=== PATIENT | male | born 1945 | race Caucasian/White ===

== ENCOUNTER 2016-12-17 02:03 | Emergency (ER) | payer MEDICARE, OTHER ==
[~2016-12-17] VITALS: Ht 185.4 cm; Wt 84.0 kg
[~2016-12-17 02:03] MED LIST: ALLOPURINOL100 MG PO; ASPIRIN EC81 MG PO; AZILECT0.5 MG PO; COREG6.25 MG PO; DOXYCYCL HYC100 M4 PO; LASIX 40 MG TAB40 MG PO; LORTAB 10 PO; MIRAPEX0.5 MG PO; NEXIUM40 MG PO; POT CHLORIDE10 ME1 PO; SINEMET 25/1001 TA2 PO
[2016-12-17] MEDS ORDERED: NEXIUM20 M1 PO (02:34)
[2016-12-17] MEDS ORDERED: ASPIRIN81 MG PO (02:39)
[2016-12-17] MEDS ORDERED: CLONAZEPAM0.5 MG PO (02:42)
[2016-12-17] MEDS ORDERED: CIALIS5 MG PO (02:43)
[2016-12-17 03:03] LABS: URINE BILIRUBIN - DIPSTICK NEGATIVE (NEGATIVE); URINE BLOOD DIPSTICK NEGATIVE (NEGATIVE); URINE CLARITY CLEAR; URINE COLOR YELLOW; URINE GLUCOSE - DIPSTICK NEGATIVE (NEGATIVE); URINE KETONE NEGATIVE (NEGATIVE); URINE LEUK ESTERASE NEGATIVE (NEGATIVE); URINE NITRITE - DIPSTICK NEGATIVE (Negative); URINE PH 5.5 (4.5-8.0); URINE PROTEIN - DIPSTICK NEGATIVE (NEG-TRACE); URINE SPECIFIC GRAVITY <=1.005; URINE UROBILINOGEN - DIPSTICK 0.2 E.U./dL (0.2)
[2016-12-17 03:06] LABS: IMMATURE GRANULOCYTES 0.6 % (0.0-1.0); MEAN CELL VOLUME 94.2 fL CALC (80.0-100.0); MEAN CORPUSCULAR HGB 31.4 pG CALC (26.0-32.0); MEAN CORPUSCULAR HGB CONC 33.3 g/L CALC (32.0-36.0); NEUT# 2.3 thou/uL (1.82-7.42); RED BLOOD COUNT 4.14 mill/uL (4.70-6.10); RED CELL DISTRI WIDTH 14.1 % (11.5-15.5)
[2016-12-17] MEDS ORDERED: RYTARY PO ×2 (03:26)
[2016-12-17 03:34] LABS: ALBUMIN 3.9 g/dL (3.2-5.0); ALKALINE PHOSPHATASE 73 u/l (38-126); ANION GAP 14 (6-22 (CALC)); BILIRUBIN, TOTAL 0.5 mg/dL (0.0-1.4); BUN 16 mg/dL (8-23); BUN/CREATININE RATIO 14 (12-20 (CALC)); CALCIUM 9.9 mg/dL (8.4-10.2); CARBON DIOXIDE 27 mmol/l (22-30); CHLORIDE 101 mmol/l (95-108); CREATININE 1.2 mg/dL (0.7-1.3); GFR 60 ML/MIN (>=60 (CALC)); GFR FOR AFR.AMER. > 60 ML/MIN (>=60 (CALC)); GLUCOSE 78 mg/dL (82-115); POTASSIUM 3.7 mmol/l (3.5-5.1); SGOT/AST 43 u/l (19-48); SGPT/ALT 19 u/l (11-66); SODIUM 138 mmol/l (137-146); TOTAL PROTEIN 7.1 g/dL (6.3-8.2)
[2016-12-17 03:45] LABS: MYOGLOBIN 36 ng/mL (0 - 121)
[2016-12-17 04:20] VITALS: BP 161/83
== END 2016-12-17 04:20 | disposition home or self-care (01) ==
LOC: ED 02:03
PROVIDERS: Emergency Medicine
DX: F41.9 Anxiety disorder, unspecified (principal); G20 Parkinson's disease; R07.9 Chest pain, unspecified; R06.02 Shortness of breath; Z95.3 Presence of xenogenic heart valve

== ENCOUNTER 2018-12-11 12:11 | Observation (INO) | payer MEDICARE, OTHER ==
[~2018-12-11] VITALS: Ht 185.4 cm; Wt 83.4 kg
[~2018-12-11 12:11] MED LIST changes: +ASPIRIN81 MG PO; +CIALIS5 MG PO; +CLONAZEPAM0.5 MG PO; +NEXIUM20 M1 PO; +RYTARY PO
[2018-12-11 12:37] LABS: HEMOGLOBIN 13.8 g/dl (14.0-18.0); IMMATURE GRANULOCYTES 0.6 % (0.0-5.0); MEAN CELL VOLUME 94.2 fL CALC (80.0-100.0); MEAN CORPUSCULAR HGB 30.9 pG CALC (26.0-32.0); MEAN CORPUSCULAR HGB CONC 32.9 g/L CALC (32.0-36.0); NEUT# 3.81 thou/uL (1.82-7.42); RED BLOOD COUNT 4.46 mill/uL (4.70-6.10); RED CELL DISTRI WIDTH 14.2 % (11.5-15.5)
[2018-12-11] MEDS ORDERED: RYTARY PO (12:38)
[2018-12-11] MEDS ORDERED: ALPRAZOLAM0.25 MG PO (12:39)
[2018-12-11] MEDS ORDERED: GOCOVRI137 MG PO (12:40)
[2018-12-11] MEDS ORDERED: OMEPRAZOLE20 M2 PO (12:40)
[2018-12-11] MEDS ORDERED: TAMSULOSIN0.4 MG PO (12:41)
[2018-12-11 12:51] LABS: ALBUMIN 4.1 g/dL (3.2-5.0); ALKALINE PHOSPHATASE 82 u/l (38-126); BUN 26 mg/dL (8-23); BUN/CREATININE RATIO 24 (12-20 (CALC)); CARBON DIOXIDE 28 mmol/l (22-30); CHLORIDE 103 mmol/l (95-108); CREATININE 1.1 mg/dL (0.7-1.3); GFR > 60 ML/MIN (>=60 (CALC)); GFR FOR AFR.AMER. > 60 ML/MIN (>=60 (CALC)); LIPASE 82 u/l (23-300); SGOT/AST 24 u/l (19-48); SODIUM 138 mmol/l (137-146); TOTAL PROTEIN 6.9 g/dL (6.3-8.2)
[2018-12-11 12:54] LABS: ANION GAP 12 (6-22 (CALC)); BILIRUBIN, TOTAL 0.8 mg/dL (0.0-1.4); POTASSIUM 4.5 mmol/l (3.5-5.1)
[2018-12-11 17:25] VITALS: BP 128/74
[2018-12-11 19:15] VITALS: BP 128/73
[2018-12-11 23:30] VITALS: BP 134/70
[2018-12-12 04:00] VITALS: BP 138/76
[2018-12-12 05:04] LABS: ALBUMIN 3.6 g/dL (3.2-5.0); BILIRUBIN, TOTAL 0.7 mg/dL (0.0-1.4); CREATININE 1.4 mg/dL (0.7-1.3); HEMATOCRIT 41.2 % (39.0-50.0); HEMOGLOBIN 13.3 g/dl (14.0-18.0); IMMATURE GRANULOCYTES 0.2 % (0.0-5.0); MAGNESIUM 1.9 mg/dL (1.6-2.3); MEAN CELL VOLUME 95.8 fL CALC (80.0-100.0); MEAN CORPUSCULAR HGB 30.9 pG CALC (26.0-32.0); MEAN CORPUSCULAR HGB CONC 32.3 g/L CALC (32.0-36.0); NEUT# 1.85 thou/uL (1.82-7.42); POTASSIUM 4.4 mmol/l (3.5-5.1); RED BLOOD COUNT 4.3 mill/uL (4.70-6.10); RED CELL DISTRI WIDTH 14.1 % (11.5-15.5); TOTAL PROTEIN 6.2 g/dL (6.3-8.2)
[2018-12-12 08:33] VITALS: BP 113/60
[2018-12-12 11:05] VITALS: BP 146/85
== END 2018-12-12 12:56 | disposition home or self-care (01) ==
LOC: ED 12:11 → ED-I 15:30 → ED 15:49 → MS2 15:50
PROVIDERS: Emergency Medicine; ADMIT Internal Medicine Nephrology; ATTEND Internal Medicine Nephrology
DX: R07.89 Other chest pain (principal); I10 Essential (primary) hypertension; G20 Parkinson's disease; M48.32 Traumatic spondylopathy, cervical region; K21.9 Gastro-esophageal reflux disease without esophagitis; N40.0 Benign prostatic hyperplasia without lower urinary tract symptoms; Z79.82 Long term (current) use of aspirin; Z95.0 Presence of cardiac pacemaker; Z95.2 Presence of prosthetic heart valve; R61 Generalized hyperhidrosis

== ENCOUNTER 2019-05-14 14:01 | Emergency (ER) | payer MEDICARE, OTHER ==
[~2019-05-14] VITALS: Ht 185.4 cm; Wt 78.0 kg
[~2019-05-14 14:01] MED LIST changes: +ALPRAZOLAM0.25 MG PO; +GOCOVRI137 MG PO; +OMEPRAZOLE20 M2 PO; +TAMSULOSIN0.4 MG PO
[2019-05-14 15:01] LABS: HEMATOCRIT 40.9 % (39.0-50.0); HEMOGLOBIN 13.3 g/dl (14.0-18.0); IMMATURE GRANULOCYTES 0.7 % (0.0-5.0); MEAN CELL VOLUME 96.2 fL CALC (80.0-100.0); MEAN CORPUSCULAR HGB 31.3 pG CALC (26.0-32.0); MEAN CORPUSCULAR HGB CONC 32.5 g/L CALC (32.0-36.0); NEUT# 1.59 thou/uL (1.82-7.42); RED BLOOD COUNT 4.25 mill/uL (4.70-6.10); RED CELL DISTRI WIDTH 14.7 % (11.5-15.5)
[2019-05-14 15:05] LABS: URINE BILIRUBIN - DIPSTICK NEGATIVE (NEGATIVE); URINE BLOOD DIPSTICK NEGATIVE (NEGATIVE); URINE COLOR YELLOW; URINE GLUCOSE - DIPSTICK NEGATIVE (NEGATIVE); URINE KETONE TRACE mg/dL (NEGATIVE); URINE LEUK ESTERASE NEGATIVE (NEGATIVE); URINE NITRITE - DIPSTICK NEGATIVE (Negative); URINE PH 5.5 (4.5-8.0); URINE PROTEIN - DIPSTICK NEGATIVE (NEG-TRACE); URINE SPECIFIC GRAVITY >=1.030; URINE UROBILINOGEN - DIPSTICK 0.2 E.U./dL (0.2)
[2019-05-14 15:21] LABS: ALBUMIN 3.4 g/dL (3.2-5.0); ALKALINE PHOSPHATASE 56 u/l (38-126); ANION GAP 9 (6-22 (CALC)); BILIRUBIN, TOTAL 0.4 mg/dL (0.0-1.4); BUN 24 mg/dL (8-23); BUN/CREATININE RATIO 25 (12-20 (CALC)); CARBON DIOXIDE 26 mmol/l (22-30); CHLORIDE 106 mmol/l (95-108); GFR > 60 ML/MIN (>=60 (CALC)); GFR FOR AFR.AMER. > 60 ML/MIN (>=60 (CALC)); LIPASE 108 u/l (23-300); SGOT/AST 19 u/l (19-48); SODIUM 137 mmol/l (137-146); TOTAL PROTEIN 6.2 g/dL (6.3-8.2)
[2019-05-14] MEDS ORDERED: ONDANSETRON4 MG PO (16:14)
[2019-05-14 16:57] VITALS: BP 111/72
== END 2019-05-14 16:59 | disposition home or self-care (01) ==
LOC: ED 14:01
PROVIDERS: Family Medicine
DX: K52.9 Noninfective gastroenteritis and colitis, unspecified (principal); G20 Parkinson's disease; Z95.0 Presence of cardiac pacemaker

== ENCOUNTER 2019-12-23 09:13 | Emergency (ER) | payer MEDICARE, OTHER ==
[~2019-12-23 09:13] MED LIST changes: +AMANTADINE100 M1 PO; +CARB/LEVO SR PO; -GOCOVRI137 MG PO; +ONDANSETRON4 MG PO
[2019-12-23] MEDS ORDERED: RYTARY PO (09:31)
[2019-12-23] MEDS ORDERED: B-12500 MCG SL (09:32)
[2019-12-23] MEDS ORDERED: [UNRECOGNIZED DRUG - OTHER] TOP (09:33)
[2019-12-23 09:40] LABS: HEMATOCRIT 43.2 % (39.0-50.0); HEMOGLOBIN 14.2 g/dl (14.0-18.0); IMMATURE GRANULOCYTES 0.5 % (0.0-5.0); MEAN CELL VOLUME 92.3 fL CALC (80.0-100.0); MEAN CORPUSCULAR HGB 30.3 pG CALC (26.0-32.0); MEAN CORPUSCULAR HGB CONC 32.9 g/dL CAL (32.0-36.0); NEUT# 3.79 thou/uL (1.82-7.42); RED BLOOD COUNT 4.68 mill/uL (4.70-6.10); RED CELL DISTRI WIDTH 14.3 % (11.5-15.5)
[2019-12-23 09:54] LABS: ALBUMIN 3.9 g/dL (3.2-5.0); ALKALINE PHOSPHATASE 74 u/l (38-126); AMYLASE 40 u/l (30-110); BUN 23 mg/dL (8-23); BUN/CREATININE RATIO 25 (12-20 (CALC)); CARBON DIOXIDE 27 mmol/l (22-30); CHLORIDE 105 mmol/l (95-108); CREATININE 0.9 mg/dL (0.7-1.3); ETHYL ALCOHOL 0 mg/dl (0-30); GFR > 60 ML/MIN (>=60 (CALC)); GFR FOR AFR.AMER. > 60 ML/MIN (>=60 (CALC)); LIPASE 83 u/l (23-300); MAGNESIUM 1.8 mg/dL (1.6-2.3); SGOT/AST 27 u/l (19-48); SODIUM 135 mmol/l (137-146)
[2019-12-23 09:56] LABS: ACT PARTIAL THROMBO TIME 24.9 SECONDS (20.0-32.5); D-DIMER 0.47 mg/L (0.19-0.60)
[2019-12-23 09:58] LABS: PROTHROMBIN TIME 10.5 SECONDS (9.0-12.5)
[2019-12-23 10:17] LABS: ANION GAP 8 (6-22 (CALC)); BILIRUBIN, TOTAL 0.9 mg/dL (0.0-1.4); POTASSIUM 4.9 mmol/l (3.5-5.1)
[2019-12-23 10:23] LABS: TSH, 3RD GENERATION 2.49 uIU/mL (0.47 - 4.68)
[2019-12-23 11:11] LABS: URINE BILIRUBIN - DIPSTICK NEGATIVE (NEGATIVE); URINE BLOOD DIPSTICK NEGATIVE (NEGATIVE); URINE COLOR YELLOW; URINE GLUCOSE - DIPSTICK NEGATIVE (NEGATIVE); URINE KETONE NEGATIVE (NEGATIVE); URINE LEUK ESTERASE NEGATIVE (NEGATIVE); URINE NITRITE - DIPSTICK NEGATIVE (Negative); URINE PROTEIN - DIPSTICK NEGATIVE (NEG-TRACE); URINE UROBILINOGEN - DIPSTICK 0.2 E.U./dL (0.2)
[2019-12-23 16:56] VITALS: BP 164/82
== END 2019-12-23 16:50 | disposition short-term general hospital (02) ==
LOC: ED 09:13
DX: R55 Syncope and collapse (principal); G20 Parkinson's disease; Z96.82 Presence of neurostimulator; Z95.0 Presence of cardiac pacemaker
CPT/HCPCS: Q9967

== ENCOUNTER 2019-12-25 09:31 | Observation (INO) | payer MEDICARE, OTHER ==
[2019-12-25] VITALS (7 sets, daily range): BP systolic 147–186; BP diastolic 79–99
[~2019-12-25] VITALS: Ht 182.9 cm; Wt 86.0 kg
[~2019-12-25 09:31] MED LIST changes: +B-12500 MCG SL; +[UNRECOGNIZED DRUG - OTHER] TOP
--- NOTE | 2019-12-25 09:45 | NUR ---
PT TO ROOM VIA WHEELCHAIR. TO STRETCHER WITH A SHUFFLING GAIT.
--- NOTE | 2019-12-25 09:50 | NUR ---
PT C/O CONTINUED DIZZINESS X 3 DAYS. [facility] COMPLETED AND IS A 0 AT THIS TIME.
--- NOTE | 2019-12-25 10:00 | NUR ---
SPOKE TO PATIENT AND HE GAVE PERMISSION TO SPEAK WITH DAUGHTER ZAYDA AND GIVE INFORMATION REGARDING HIS CONDITION.
[2019-12-25 10:54] LABS: HEMATOCRIT 44.8 % (39.0-50.0); HEMOGLOBIN 14.3 g/dl (14.0-18.0); IMMATURE GRANULOCYTES 0.5 % (0.0-5.0); MEAN CELL VOLUME 94.3 fL CALC (80.0-100.0); MEAN CORPUSCULAR HGB 30.1 pG CALC (26.0-32.0); MEAN CORPUSCULAR HGB CONC 31.9 g/dL CAL (32.0-36.0); NEUT# 3.97 thou/uL (1.82-7.42); RED BLOOD COUNT 4.75 mill/uL (4.70-6.10); RED CELL DISTRI WIDTH 14.2 % (11.5-15.5)
[2019-12-25 10:55] LABS: URINE BILIRUBIN - DIPSTICK NEGATIVE (NEGATIVE); URINE BLOOD DIPSTICK NEGATIVE (NEGATIVE); URINE COLOR YELLOW; URINE GLUCOSE - DIPSTICK NEGATIVE (NEGATIVE); URINE KETONE NEGATIVE (NEGATIVE); URINE LEUK ESTERASE NEGATIVE (NEGATIVE); URINE NITRITE - DIPSTICK NEGATIVE (Negative); URINE PH 5.5 (4.5-8.0); URINE PROTEIN - DIPSTICK NEGATIVE (NEG-TRACE); URINE UROBILINOGEN - DIPSTICK 0.2 E.U./dL (0.2)
--- NOTE | 2019-12-25 11:00 | NUR ---
PT RESTING IN STRETCHER IN NAD AND DENIES ANY NEEDS AT THIS TIME. CALL VALLE WITHIN REACH. PT AND UPDATED ON PLAN OF CARE AND WAIT TIME.
[2019-12-25 11:10] LABS: ALKALINE PHOSPHATASE 74 u/l (38-126); ANION GAP 8 (6-22 (CALC)); BILIRUBIN, TOTAL 0.6 mg/dL (0.0-1.4); BUN 19 mg/dL (8-23); BUN/CREATININE RATIO 19 (12-20 (CALC)); CARBON DIOXIDE 29 mmol/l (22-30); CHLORIDE 104 mmol/l (95-108); GFR > 60 ML/MIN (>=60 (CALC)); GFR FOR AFR.AMER. > 60 ML/MIN (>=60 (CALC)); POTASSIUM 4.1 mmol/l (3.5-5.1); SGOT/AST 26 u/l (19-48); SODIUM 137 mmol/l (137-146); TOTAL PROTEIN 7.3 g/dL (6.3-8.2)
--- NOTE | 2019-12-25 11:23 | NUR ---
EDP at bedside to discuss clinical findings with pt
--- NOTE | 2019-12-25 12:00 | NUR ---
PT INFOMRED STAFF THAT MEDICATION LIST IS THE SAME AT THIS TIME AND HE TOOK ALL MEDICATIONS THIS AM.
--- NOTE | 2019-12-25 12:01 | NUR ---
CALL INTO [facility] FOR PACER INTERROGATION, PT HAD IT DONE ON WEDNESDAY AND REQUEST IT BE INTERROGATED AGAIN. AWAITING REP CALL BACK
--- NOTE | 2019-12-25 12:35 | NUR ---
PT REPORT CALLED TO PABLO DUONG.
--- NOTE | 2019-12-25 12:38 | NUR ---
ROSANNE INTERROGATED AT BEDSIDE, CALL INTO [facility]. SPOKE WITH TRUNG AT [facility] AND SHE WILL HAVE REP CALL UPSTAIRS TO ACCEPTING NURSE
--- NOTE | 2019-12-25 12:40 | NUR ---
Admission Note Report Given to: PABLO DUONG Transported by: Wheelchair X Stretcher Transported with: X Nurse Transporter X Patent IV O2 X Conical Mixer Location: ICU X MS2 PT TAKEN TO ROOM 280 IN STABLE CONDITION AND BEDSIDE REPORT TO RHODA SHAH.
--- NOTE | 2019-12-25 12:50 | NUR ---
PT ARRIVED TO UNIT VIA STRETCHER WITH ER STAFF; ALERT AND ORIENTED. STANDS AND AMBULATES WITH SHUFFLED GAIT TO BED; AMBULATES WITH WALKER AT HOME. C/O INTERMITTENT HEADACHE TO FORHEAD 5/10. RESPIRATIONS EVEN AND UNLABORED ON ROOM AIR. BP ELEVATED AT THIS TIME; PT IS CALM. ORIENTED TO ROOM AND CALL LIGHT SYSTEM. PLAN OF CARE DISCUSSED. PT ENCOURAGED TO VERBALIZE CONCERNS. STATES UNDERSTANDING. SAFETY MEASURES IN PLACE. CALL LIGHT WITHIN REACH.
--- NOTE | 2019-12-25 13:15 | NUR ---
ORTHOSTATIC BLOOD PRESSURES OBTAINED AND DOCUMENTED. SBP DECREASED GREATER THAN 20 FROM SITTING TO STANDING.
--- NOTE | 2019-12-25 14:41 | NUR ---
PT AMBULATED TO BATHROOM WITH WALKER AND STAND BY ASSIST FOR BOWEL MOVEMENT. REQUESTS STOOL SOFTER. FAMILY CALLED TO BRING PT'S PERSONAL WALKER. NOW AT BEDSIDE.
--- NOTE | 2019-12-25 15:29 | NUR ---
PT AND ARE HAVING A TELECOMMUNICATION CONFERENCE WITH NEUROLOGIST.
--- NOTE | 2019-12-25 15:45 | NUR ---
CASE MANAGEMENT AT BEDSIDE WITH PRESENT.
--- NOTE | 2019-12-25 20:30 | NUR ---
REPORT RECEIVED FROM Brigida TILLMAN RN, CARE OF PT ASSUMED @ THIS TIME.
--- NOTE | 2019-12-25 20:45 | NUR ---
PHYSICAL ASSESMENT COMPLETE. VS TAKEN BY WORKSITE WELLNESS PRACTITIONER @ 3311 ASSESSED. TELEMETRY READING PROVIDED BY ED COLLECTION DEVELOPMENT LIBRARIAN @ 1999 ASSESSED. PLAN OF CARE REVIEWED W/ PT, VERBALIZES UNDERSTANDING AND DENIES QUESTIONS @ THIS TIME. PROVIDED W/ HS SNACK AND WARM BLANKET PER HIS REQUEST. ASSISTED PT IN POSITIONING COMFORTABLY IN BED. PT DENIES FURTHER NEEDS @ THIS TIME. CALL VALLE WITHIN REACH, AGREES TO CALL PRN. BED LOCKED IN LOW POSITION W/ BEDRAILS UP X2, ITEMS WITHIN REACH.
--- NOTE | 2019-12-25 21:05 | NUR ---
PT'S REPORTS ALREADY TAKING HIS 2100 DOSE OF COREG FROM HIS OWN MEDICATIONS. PT CALLED AND PT'S VERIFIED COREG WAS ALREADY TAKEN.
--- NOTE | 2019-12-25 23:40 | NUR ---
PT REQUESTING HIS KLONOPIN, EXPLAINED TO PT KLONOPIN WAS SCHEDULED FOR DAILY @ 0900. PT CLARIFIES HE TAKES KLONOPIN @ . CLARIFIED AND CORRECTED ON OCT.
--- NOTE | 2019-12-26 00:05 | NUR ---
THEE GIVEN, SEE MAR. PHYSICAL ASSESSMENT REMAINS @ BASELINE. VS TAKEN BY FIBREGLASS GUN HAND @ 2340 ASSESSED. TELEMETRY READING PROVIDED BY ED ACID CORRECTION HAND ASSESSED. PT DENIES FURTHER NEEDS @ THIS TIME. CALL VALLE REMAINS WITHIN REACH, AGREES TO CALL PRN. ITEMS REMAIN WITHIN REACH. BED REMAINS LOCKED IN LOW POSITION W/ BEDRAILS UP X2.
--- NOTE | 2019-12-26 03:26 | NUR ---
PT APPEARS TO BE SLEEPING COMFORTABLY AND IN NO APPARENT DISTRESS. RESPIRATIONS EVEN AND UNLABORED. CALL VALLE REMAINS WITHIN REACH, ITEMS REMAIN WITHIN REACH. BED REMAINS LOCKED IN LOW POSITION W/ BEDRAILS UP X2.
[2019-12-26 04:12] VITALS: BP 129/82
--- NOTE | 2019-12-26 05:20 | NUR ---
PHYSICAL ASSESSMENT REMAINS UNCHANGED FROM BASELINE. VS TAKEN BY SENIOR PARTNER @ 0412 ASSESSED. TELEMETRY READING PROVIDED BY ED LICENSED SALES ASSISTANT @ 0400 ASSESSED. PT DENIES FURTHER NEEDS @ THIS TIME. RESTING COMFORTABLY IN BED. CALL VALLE REMAINS WITHIN REACH, AGREES TO CALL PRN. ITEMS REMAIN WITHIN REACH. BED REMAINS LOCKED IN LOW POSITION W/ BEDRAILS UP X2.
--- NOTE | 2019-12-26 05:59 | NUR ---
PT ENDORSED TO Brigida TILLMAN RN, CARE OF PT HANDED OFF @ THIS TIME.
[2019-12-26 07:46] VITALS: BP 132/79
--- NOTE | 2019-12-26 07:54 | NUR ---
SHIFT CHANGE REPORT, PT AWAKE ALERT AND ORIENTED SITTING UP IN CHAIR, NO C/O DISCOMFORT, STATES HE IS READY TO GO HOME, TELE MONITOR IN PLACE, CALL VALLE IN REACH.
--- NOTE | 2019-12-26 08:14 | NUR ---
NURSE WENT TO ADMINISTER MEDS, PT REFUSED STATING HE ALREADY TOOK HIS OWN. PT WAS INFORMED AND EDUCATED ON POLICY OF TAKING HOME MEDS IN HOSPITAL AND ADVISED TO REPORT AND DELIVER ALL HOME MEDS TO NURSING STAFF ON ADMISSION, HE STATED UNDERSTANDING.
[2019-12-26 11:41] VITALS: BP 149/83
--- NOTE | 2019-12-26 12:20 | NUR ---
Discharge instructions given. Patient verbalizes understanding of same. Discharged in good condition via Wheelchair to Home with spouse. All belongings sent with pt. PT LEFT UNIT WITH FACE MASK IN PLACE, TELE MONITOR REMOVED AND LEFT ON UNIT.
--- NOTE | 2019-12-28 11:41 | NUR ---
BLOOD CULTURE RESULTS CALLED TO . / VIALS GROWING CORYNEBACTERIUM. MD DOES NOT COSIDER THIS A (+) RESULT NO TREATMENT NEEDED.
== END 2019-12-26 12:20 | disposition home or self-care (01) ==
LOC: ED 09:31 → ED-I 11:15 → ED 11:27 → ED-I 11:28 → MS2 11:28
PROVIDERS: Family Medicine; ADMIT Internal Medicine; ATTEND Internal Medicine
DX: I95.1 Orthostatic hypotension (principal); G20 Parkinson's disease; Z95.0 Presence of cardiac pacemaker; Z95.2 Presence of prosthetic heart valve; Z20.828 Contact with and (suspected) exposure to other viral communicable diseases
CPT/HCPCS: G0378

== ENCOUNTER 2020-04-10 13:41 | Observation (INO) | payer MEDICARE, OTHER ==
[~2020-04-10] VITALS: Ht 185.4 cm; Wt 87.2 kg
--- NOTE | 2020-04-10 13:41 | NUR ---
PT TO ROOM VIA WC
[2020-04-10 14:32] LABS: HEMATOCRIT 41.9 % (39.0-50.0); HEMOGLOBIN 13.2 g/dl (14.0-18.0); IMMATURE GRANULOCYTES 0.5 % (0.0-5.0); MEAN CELL VOLUME 95.9 fL CALC (80.0-100.0); MEAN CORPUSCULAR HGB 30.2 pG CALC (26.0-32.0); MEAN CORPUSCULAR HGB CONC 31.5 g/dL CAL (32.0-36.0); NEUT# 5.53 thou/uL (1.82-7.42); RED BLOOD COUNT 4.37 mill/uL (4.70-6.10); RED CELL DISTRI WIDTH 14.6 % (11.5-15.5)
--- NOTE | 2020-04-10 14:40 | NUR ---
PT UPDATED ON PENDING ADMISSION. PT VERBALILZED UNDERSTANDING. SITTING UP IN STRETCHER AOX4. UPON REASSESSMENT HE STATES THAT HIS CHEST PRESSURE HAS RELIEVED "A BIT"
[2020-04-10 14:48] LABS: ALBUMIN 3.9 g/dL (3.2-5.0); ALKALINE PHOSPHATASE 87 u/l (38-126); ANION GAP 10 (6-22 (CALC)); BILIRUBIN, TOTAL 0.5 mg/dL (0.0-1.4); BUN 33 mg/dL (8-23); BUN/CREATININE RATIO 28 (12-20 (CALC)); CARBON DIOXIDE 28 mmol/l (22-30); CHLORIDE 103 mmol/l (95-108); CREATININE 1.2 mg/dL (0.7-1.3); GFR 59 ML/MIN (>=60 (CALC)); GFR FOR AFR.AMER. > 60 ML/MIN (>=60 (CALC)); POTASSIUM 4.5 mmol/l (3.5-5.1); SGOT/AST 35 u/l (19-48); SODIUM 136 mmol/l (137-146); TOTAL PROTEIN 6.7 g/dL (6.3-8.2)
--- NOTE | 2020-04-10 15:51 | NUR ---
GAVE REPORT TO NATANAEL
--- NOTE | 2020-04-10 16:00 | NUR ---
Admission Note Report Given to: NATANAEL Transported by: X Wheelchair Stretcher Transported with: X Nurse Transporter X Patent IV O2 X School Bus Driver/Mechanic Location: ICU X MS2 PT TRANSPORTED TO [facility] SURG STABLE AND IN NO DISTRESS. CARE ASSUMED NATANAEL
[2020-04-10 16:15] VITALS: BP 153/85
--- NOTE | 2020-04-10 16:15 | NUR ---
PT ARRIVED TO MED/SURG ROOM 267 IN STABLE CONDITION VIA WHEELCHAIR ACCOMPANIED BY PABLO LARKIN;PT AMBULATED WITH A WEAK GAIT AND 1 PERSON ASSIST TO STANDING SCALE AND BEDSIDE;WT AND VS OBTAINED;PT A&O X3,ORIENTED TO ROOM AND CALL LIGHT SYSTEM;PT REPORTS COUGH AND CHEST TIGHTNESS X3 WEEKS NET SORTER;PT DENIES ANY CURRENT PAIN OR DISCOMFORTS,PAIN SCALE AND REPORTING EDUCATED;RESPIRATIONS SHALLOW ON RA,WHEEZY/DIMINISHED LUNG SOUNDS NOTED;PT REPORTS PRODUCTIVE COUGH WITH WHITE/THICK SPUTUM;ABDOMEN SOFT ON PALPATION AND ACTIVE IN ALL 4 QUADRANTS,LAST BM 04/10/20;WEAK PEDAL PULSES;SKIN INTACT;TELE MONITORING IN PLACE;#20G TO RAC FLUSHED AND PATENT,SITE APPEARS HEALTHY;PT DENIES ANY ADDITIONAL NEEDS AT THIS TIME;ALL SAFETY PRECAUTIONS IN PLACE WITH BED IN THE LOWEST POSITION AND CALL LIGHT IN REACH;WILL CONTINUE TO MONITOR
--- NOTE | 2020-04-10 16:30 | NUR ---
RENAY ANRP AT BEDSIDE
[2020-04-10 19:05] VITALS: BP 135/80
--- NOTE | 2020-04-10 20:32 | NUR ---
PT RESTING IN BED, NO SIGNS OF DISTRESS NOTED, RESP EVEN AND UNLABORED. PT ALERT AND ORIENTED X3, NOTED TREMORS, PT HAS HX OF PARKINSONS. DISCUSSED POC, PT MEDICATED PER MAR. SKIN INTACT. ASSESSMENT COMPLETED, PT VOICES NO NEEDS OR COMPLAINTS AT THIS TIME. CALL LIGHT IN REACH,CONTINUE TO MONITOR.
--- NOTE | 2020-04-10 22:40 | NUR ---
PT REQUESTING COUGH MEDICATION, NOTIFIED NEW ORDER OBTAINED, AWAITING PHARMACY TO PROFILE. CALL LIGHT IN REACH,CONTINUE TO MONITOR.
[2020-04-10 23:33] VITALS: BP 115/72
--- NOTE | 2020-04-11 00:01 | NUR ---
PT RESTING IN BED WITH EYES CLOSED, NO SIGNS OF DISTRESS NOTED, RESP EVEN AND UNLABORED. CALL LIGHT IN REACH,CONTINUE TO MONITOR.
[2020-04-11 04:15] VITALS: BP 119/70
[2020-04-11 05:59] LABS: HEMATOCRIT 46.9 % (39.0-50.0); HEMOGLOBIN 14.8 g/dl (14.0-18.0); IMMATURE GRANULOCYTES 0.8 % (0.0-5.0); MEAN CELL VOLUME 94.6 fL CALC (80.0-100.0); MEAN CORPUSCULAR HGB 29.8 pG CALC (26.0-32.0); MEAN CORPUSCULAR HGB CONC 31.6 g/dL CAL (32.0-36.0); NEUT# 5.17 thou/uL (1.82-7.42); RED BLOOD COUNT 4.96 mill/uL (4.70-6.10); RED CELL DISTRI WIDTH 14.6 % (11.5-15.5)
[2020-04-11 06:24] LABS: ALBUMIN 4.2 g/dL (3.2-5.0); ALKALINE PHOSPHATASE 101 u/l (38-126); ANION GAP 10 (6-22 (CALC)); BILIRUBIN, TOTAL 0.7 mg/dL (0.0-1.4); BUN 32 mg/dL (8-23); BUN/CREATININE RATIO 30 (12-20 (CALC)); C-REACTIVE PROTEIN < 0.5 mg/dL (0-0.9); CALCULATED LDLCHOLESTEROL 119 mg/dL (62-129 (CALC)); CARBON DIOXIDE 30 mmol/l (22-30); CHLORIDE 101 mmol/l (95-108); CHOLESTEROL HDL RATIO 3.3 (<4.4 (CALC)); CREATININE 1.1 mg/dL (0.7-1.3); GFR > 60 ML/MIN (>=60 (CALC)); GFR FOR AFR.AMER. > 60 ML/MIN (>=60 (CALC)); HDL CHOLESTEROL 65 mg/dL (>=40); MAGNESIUM 2.1 mg/dL (1.6-2.3); POTASSIUM 4.5 mmol/l (3.5-5.1); SGOT/AST 34 u/l (19-48); SODIUM 136 mmol/l (137-146); TOTAL PROTEIN 7.3 g/dL (6.3-8.2); TOTAL TRIGLYCERIDES 150 mg/dl (30-149); VLDL CHOLESTROL 30 mg/dl (0-38 (CALC))
[2020-04-11 06:26] LABS: TOTAL CHOLESTEROL 214 mg/dl (0-199)
--- NOTE | 2020-04-11 06:35 | NUR ---
PT SITTING ON SIDE OF BED, MEDICATED WITH ROBITUSSIN, CALL LIGHT IN REACH,CONTINUE TO MONITOR.
--- NOTE | 2020-04-11 07:00 | NUR ---
REPORT RECEIVED FROM ARAMIS MELÉNDEZ.
--- NOTE | 2020-04-11 07:43 | NUR ---
PER ED MONITORING RHYTHM CHANGE, STAT ODER FOR EKG OBTAINED.
--- NOTE | 2020-04-11 07:53 | NUR ---
RT GUZMAN AT BEDSIDE COMPLETING EKG
--- NOTE | 2020-04-11 08:20 | NUR ---
PT RESTING IN SEMI FOWLERS POSITION,A&O X3;VS OBTAINED AND ASSESSMENT COMPLETED;PT DENIES ANY CURRENT PAIN OR DISCOMFORTS,PAIN SCALE AND REPORTING EDUCATED;RESPIRATIONS EVEN AND UNLABORED ON RA,WHEEZY/DIMINISHED LUNG SOUNDS NOTED;PRODUCTIVE CLEAR/THICK COUGH NOTED AT TIMES;ABDOMEN SOFT ON PALPATION AND ACTIVE IN ALL 4 QUADRANTS;STRONG PEDAL PULSES;SKIN INTACT;TELE MONITORING IN PLACE;#20G TO RAC FLUSHED AND PATENT,SITE APPEARS HEALTHY;PT DENIES ANY ADDITIONAL NEEDS AT THIS TIME AND IS ENCOURAGED TO CALL FOR ASSISTANCE IF NEEDED;FALL PRECAUTIONS IN PLACE WITH BED IN THE LOWEST POSITION AND CALL LIGHT IN REACH;WILL CONTINUE TO MONITOR
[2020-04-11 08:22] VITALS: BP 128/71
--- NOTE | 2020-04-11 08:31 | NUR ---
AT BEDSIDE DISCUSSING POC WITH PT.
[2020-04-11] MEDS ORDERED: Levaquin PO (09:02)
[2020-04-11] MEDS ORDERED: MUCINEX600 MG PO (09:03)
[2020-04-11] MEDS ORDERED: PREDNISONE20 MG PO (09:04)
[2020-04-11] MEDS ORDERED: LASIX 40 MG TAB40 MG PO (09:05)
[2020-04-11] MEDS ORDERED: IPRATROPIU0.5 MG/3 M IN ×2 (09:35→11:17)
--- NOTE | 2020-04-11 10:35 | NUR ---
PT RESTING IN SEMI FOWLERS POSITION;ALL DISCHARGE INSTRUCTIONS PROVIDED AT THIS TIME;PT INSTRUCTED TO TAKE LEVAQUIN,PREDNISIONE,MUCINEX PO DIRECTED,TO LASIX AND DUENEBS NEEDED;FOLLOW UP WITH WITHIN THE NEXT FEW WEEKS AND THAT HE COULD BENEFIT FROM SEEING A DIRECTOR HEMATOLOGY;PT ALSO INSTRUCTED TO RETURN TO [facility] IF SYMPTOMS WORSEN;ALL RX SENT TO PHARMACY;PT DENIES ANY ADDITIONAL QUESTIONS OR NEEDS;IV SITE REMOVED WITH CATHETER INTACT AND TELE MONITORING D/C;WHEELCHAIR TO BE PROVIDED FOR D/C HOME;SPOUSE TO TRANSPORT PT HOME;CALL LIGHT IN REACH;WILL CONTINUE TO MONITOR
[2020-04-11 10:40] VITALS: BP 120/82
--- NOTE | 2020-04-11 11:04 | NUR ---
Discharge instructions given. Patient verbalizes understanding of same. Discharged in stable condition via Wheelchair to Home with spouse. All belongings sent with pt. PT TRANSPORTED TO [facility] IN STABLE CONDITION VIA WHEELCHAIR ACCOMPANIED BY THIS WRITTER FOR D/C HOME;ALL BELONGINGS AND HOME MEDICATIONS LEFT WITH PT;SPOUSE TO TRANSPORT PT HOME AND DISCHARGE INSTRUCTIONS DISCUSSED WITH SPOUSE WELL.
--- NOTE | 2020-04-11 15:25 | NUR ---
Screen: ST is not needed at this time per ADMISSIONS SPECIALIST and attending nurse.
== END 2020-04-11 11:01 | disposition home or self-care (01) ==
LOC: ED 13:41 → ED-I 14:50 → ED 15:14 → MS2 15:15
PROVIDERS: Family Medicine; Nurse Practitioner; ADMIT Internal Medicine; ATTEND Internal Medicine
DX: R05 Cough (principal); R06.2 Wheezing; R07.81 Pleurodynia; G20 Parkinson's disease; I25.10 Atherosclerotic heart disease of native coronary artery without angina pectoris; Z95.3 Presence of xenogenic heart valve; Z95.0 Presence of cardiac pacemaker; Z96.82 Presence of neurostimulator; Z20.828 Contact with and (suspected) exposure to other viral communicable diseases
CPT/HCPCS: G0378; J1650

== ENCOUNTER 2020-07-15 08:45 | Observation (INO) | payer MEDICARE, OTHER ==
[~2020-07-15] VITALS: Ht 185.4 cm; Wt 86.2 kg
[2020-07-15] VITALS (8 sets, daily range): BP systolic 115–148; BP diastolic 62–88
[~2020-07-15 08:45] MED LIST changes: +IPRATROPIU0.5 MG/3 M IN; +Levaquin PO; +MUCINEX600 MG PO; +PREDNISONE20 MG PO
--- NOTE | 2020-07-15 09:01 | NUR ---
PATIENT TO ROOM VIA WHEELCHAIR AND PHYSICIAN NOTIFIED OF PATINET STATUS
[2020-07-15 09:57] LABS: HEMATOCRIT 43.2 % (39.0-50.0); HEMOGLOBIN 13.8 g/dl (14.0-18.0); IMMATURE GRANULOCYTES 0.3 % (0.0-5.0); MEAN CELL VOLUME 94.1 fL CALC (80.0-100.0); MEAN CORPUSCULAR HGB 30.1 pG CALC (26.0-32.0); MEAN CORPUSCULAR HGB CONC 31.9 g/dL CAL (32.0-36.0); NEUT# 4.61 thou/uL (1.82-7.42); RED BLOOD COUNT 4.59 mill/uL (4.70-6.10); RED CELL DISTRI WIDTH 14.4 % (11.5-15.5)
--- NOTE | 2020-07-15 10:00 | NUR ---
PT RESTING IN BED. STABLE ON MONITOR. CALL LIGHT WITHIN REACH. URINAL WITHIN REACH. DENIES ANY NEEDS AT THIS TIME.
[2020-07-15 10:03] LABS: URINE BILIRUBIN - DIPSTICK NEGATIVE (NEGATIVE); URINE BLOOD DIPSTICK NEGATIVE (NEGATIVE); URINE COLOR YELLOW; URINE GLUCOSE - DIPSTICK NEGATIVE (NEGATIVE); URINE KETONE NEGATIVE (NEGATIVE); URINE LEUK ESTERASE NEGATIVE (NEGATIVE); URINE NITRITE - DIPSTICK NEGATIVE (Negative); URINE PH 5.5 (4.5-8.0); URINE PROTEIN - DIPSTICK NEGATIVE (NEG-TRACE); URINE SPECIFIC GRAVITY 1.015; URINE UROBILINOGEN - DIPSTICK 0.2 E.U./dL (0.2)
[2020-07-15 10:10] LABS: ALBUMIN 4.1 g/dL (3.2-5.0); ALKALINE PHOSPHATASE 62 u/l (38-126); ANION GAP 11 (6-22 (CALC)); BUN 20 mg/dL (8-23); BUN/CREATININE RATIO 17 (12-20 (CALC)); CARBON DIOXIDE 29 mmol/l (22-30); CHLORIDE 103 mmol/l (95-108); CREATININE 1.2 mg/dL (0.7-1.3); GFR 59 ML/MIN (>=60 (CALC)); GFR FOR AFR.AMER. > 60 ML/MIN (>=60 (CALC)); POTASSIUM 4.2 mmol/l (3.5-5.1); SGOT/AST 20 u/l (19-48); SODIUM 140 mmol/l (137-146); TOTAL PROTEIN 7.1 g/dL (6.3-8.2)
[2020-07-15 10:11] LABS: BILIRUBIN, TOTAL 0.8 mg/dL (0.0-1.4)
[2020-07-15 10:19] LABS: MYOGLOBIN 37 ng/mL (0 - 121)
[2020-07-15] MEDS ORDERED: XARELTO10 MG PO (10:39)
[2020-07-15] MEDS ORDERED: WELLBUTRIN XL300 MG PO (10:41)
--- NOTE | 2020-07-15 10:45 | NUR ---
ORTHOSTATIC VITALS COMPLETED ORDERED BY ARE FOLLOWS: LAYIN/91 HR-80 SITTIN/94 HR-81 STANDIN/89 HR-79
--- NOTE | 2020-07-15 11:42 | NUR ---
PT WITH NO COMPLAINTS. STABLE. NO CHANGE FROM PREVIOUS NOTE.
--- NOTE | 2020-07-15 12:36 | NUR ---
REPORT CALLED TO PABLO DUONG ON [facility].
--- NOTE | 2020-07-15 12:45 | NUR ---
PT ARRIVED TO UNIT AT 1243 VIA WHEELCHAIR WITH ER STAFF; ALERT AND ORIENTED X 4. AMBULATED TO BED WITH SHUFFLED UNSTEADY GAIT; PT REPORTS USING CANE, WALKER, AND WHEELCHAIR AT HOME; DECREASED MOBILITY DUE TO PARKINSONS. DENIES PAIN CURRENLTY. RESPIRATIONS EVEN AND UNLABORED ON ROOM AIR. VSS. ASSESSMENT WNL. ADMITS TO RECEIVING FLU VACCINE THIS WEEK. ORIENTED TO ROOM AND CALL LIGHT SYSTEM. PLAN OF CARE DISCUSSED. PT ENCOURAGED TO VERBALIZE CONCERNS; STATES UNDERSTANDING AND MENTIONS HE HAS ANXIETY. SAFETY MEASURES IN PLACE. CALL LIGHT WITHIN REACH.
--- NOTE | 2020-07-15 13:23 | NUR ---
SITTING UP ON EDGE OF BED EATING LUNCH.
--- NOTE | 2020-07-15 16:17 | NUR ---
PT SEEN RESTING IN SEMIFOWLER POSITION IN THE BED, TALKING ON THE PHONE OCCASIONALLY. NO DISTRESS NOTED, NO SYNCOPE.
--- NOTE | 2020-07-15 16:34 | NUR ---
SPOKE WITH DAYANARA FROM [employer] REGARDING PACEMAKER INTERROGATION; STATES THAT [employer] WILL BE IN TOMORROW.
--- NOTE | 2020-07-15 16:44 | NUR ---
YARA FERNÁNDEZ FROM [employer] WILL BE HERE TOMORROW BEFORE NOON FOR PACEMAKER INTERROGATION. PATIENT AND FAMILY UPDATED.
--- NOTE | 2020-07-15 20:14 | NUR ---
PATIENT RESTING IN BED AT THIS TIME-AWAKE ALERT AND ORIENTEDX3. PATIENT WITH NO COMPLAINTS AT THIS TIME. ORTHOSTATIC VS TAKEN AND RECORDED. PATIENT DENIES ANY DIZZINESS OR LIGHTHEADEDNESS AT THIS TIME. VOIDING QS YELLOW URINE. SALINE LOCK TO RAC-SITE IS HEALTHY WITH GOOD BLOOD RETURN. IVF NS HUNG ORDERED AND INFUSING AT 100CC/HR. PATIENT STATES LAST BM WAS YESTERDAY. ABD IS SOFT WITH BS+. LUNGS CLEAR. NO PERIPHERAL EDEMA NOTED. PULSES ARE PALPABLE. SAFETY PRECAUTIONS REINFORCED. CALL LIGHT IN REACH. WILL CONT TO MONITOR.
--- NOTE | 2020-07-15 22:00 | NUR ---
PATIENT RESTING IN BED-MEDICATED FOR SLEEP WITH SONATA 5MG PO PER PATIENT REQUEST. CALL LIGHT IN REACH. WILL CONT TO MONITOR.
[2020-07-16] VITALS: BP 135/81
--- NOTE | 2020-07-16 01:12 | NUR ---
PATIENT RESTING IN BED WITH EYES CLOSED. RESPS ARE EVEN AND UNLABORED. PATIENT APPEARS SLEEPING. TELE MONITOR IN PLACE. TROP WAS DRAWN AT 0000 AND WAS NEG. CALL LIGHT IN REACH. WILL CONT TO MONITOR.
[2020-07-16 03:44] VITALS: BP 156/91
--- NOTE | 2020-07-16 05:45 | NUR ---
PATIENT RESTING IN BED-ASKED FOR ASSISTANCE TO THE SINK TO DO ORAL HYGEINE. PATIENT MAX ASSIST-VERY UNSTEADY ON HIS FEET WITH SHUFFLING GAIT. ASSISTED TO WHEELCHAIR TO COMPLETE TASK. REMAINS UP IN WHEELCHAIR AT THIS TIME WATCHING TV. IVF NS PATENT AND INFUSING VIA RAC SITE AT 100CC/HR. VOIDING QS YELLOW URINE, TELE MONITOR REMAINS IN PLACE. SAFETY PRECAUTIONS REINFORCED. CALL LIGHT IN REACH. WILL CONT TO MONITOR.
[2020-07-16 06:01] LABS: HEMATOCRIT 42.9 % (39.0-50.0); HEMOGLOBIN 13.7 g/dl (14.0-18.0); IMMATURE GRANULOCYTES 0.4 % (0.0-5.0); MEAN CELL VOLUME 93.9 fL CALC (80.0-100.0); MEAN CORPUSCULAR HGB CONC 31.9 g/dL CAL (32.0-36.0); NEUT# 3.26 thou/uL (1.82-7.42); RED BLOOD COUNT 4.57 mill/uL (4.70-6.10); RED CELL DISTRI WIDTH 14.5 % (11.5-15.5)
[2020-07-16 06:49] LABS: ALBUMIN 3.5 g/dL (3.2-5.0); ALKALINE PHOSPHATASE 62 u/l (38-126); ANION GAP 9 (6-22 (CALC)); BILIRUBIN, TOTAL 0.7 mg/dL (0.0-1.4); BUN 23 mg/dL (8-23); BUN/CREATININE RATIO 20 (12-20 (CALC)); CALCULATED LDLCHOLESTEROL 105 mg/dL (62-129 (CALC)); CARBON DIOXIDE 29 mmol/l (22-30); CHLORIDE 107 mmol/l (95-108); CHOLESTEROL HDL RATIO 3.2 (<4.4 (CALC)); CREATININE 1.2 mg/dL (0.7-1.3); GFR 59 ML/MIN (>=60 (CALC)); GFR FOR AFR.AMER. > 60 ML/MIN (>=60 (CALC)); HDL CHOLESTEROL 56 mg/dL (>=40); MAGNESIUM 1.9 mg/dL (1.6-2.3); SGOT/AST 19 u/l (19-48); SODIUM 141 mmol/l (137-146); TOTAL CHOLESTEROL 178 mg/dl (0-199); TOTAL PROTEIN 6.3 g/dL (6.3-8.2); TOTAL TRIGLYCERIDES 85 mg/dl (30-149); VLDL CHOLESTROL 17 mg/dl (0-38 (CALC))
[2020-07-16 07:21] VITALS: BP 134/82
--- NOTE | 2020-07-16 07:21 | NUR ---
PATIENT STITTING UP IN CHAIR AT THIS TIME. ALERT AND ORIENTED. DENIES ANY PAIN. PATIENT CALL LIGHT WITHIN REACH. PATIENT STATES THAT HE DIDN'T SLEEP MUCH LAST NIGHT AND IF HE HAS TO STAY ANOTHER DAY HE NEEDS SOMETHING FOR ANIEXITY" CONFIRMED WITH DONNA THAT WILL BE ROUNDING AND WE WILL SPEAK TO HIM ON THIS MATTER. PATEINT SLIGHTLY ANXIOUS AT THIS TIME BUT VERBALLY DIRECTABLE. NEURO CHECKS ARE IN NORMAL RANGE AND SPEECH IS CLEAR AND FOLLOWS ALL COMMNADS. DAUGHTER IN TO SEE PATIENT TO GIVE PATIENT HIS DAILY SENTIMENT MEDICATION FOR HIS PARKINSONS PER FAMILY REQUEST HE USES MEDICATION FROM HOME.
--- NOTE | 2020-07-16 09:30 | NUR ---
[employer] IN TO INTERIGATE PACEMAKER AT THIS TIME. PACEMAKER IS APPROPIATED AND REPORT FORM TREATMENT PLANT MECHANIC STATED THAT PATIENT HAS BEEN IN A-FIB GREATER THAN 10DAY. THIS INFORMATION REPORTED TO FRANCO BROWN APRN AT THIS TIME.
--- NOTE | 2020-07-16 09:52 | NUR ---
PT Note Patient was standing as entered room, BULLET ASSEMBLY PRESS SETTER OPERATOR present as well. Patient getting ready for shower so patient ambulated to bathroom SBA, sat on toilette and relieved self. Stand>sit (SBA), sit>stand (independent) VC for correct hand placement to propell self to a standing position. Patient then ambulated around room (SBA), loss of balance noted, patient self corrected as was necessary. after ambulation exited room and BULLET ASSEMBLY PRESS SETTER OPERATOR continued w/ bathing patient. [facility] 6 score 12
[2020-07-16 10:30] VITALS: BP 146/83
--- NOTE | 2020-07-16 11:33 | NUR ---
PATIENT IN BED AT THIS TIME WATCHING TV. PATIENT ALERT AND ORIENTEDX3 DENIES ANY NEEDS AT THIS TIME. ALL SAFETY MEASURES IN PLACE CALL LIGHT WITHIN REACH. SIDERAILS UP X 2.
[2020-07-16 15:00] VITALS: BP 147/92
--- NOTE | 2020-07-16 16:08 | NUR ---
PATEINT IN BED AT THIS TIME C/0 HEADACHE AND STATES PAIN IS A 5 OUT OF PAIN SCALE 0-10. PATIENT ALSO C/0 OF SLIGHT ANXIETY AND REQUESTING MEDICATION FOR THIS AT THIS TIME. PATIENT MEDICATED WITH TYLENOL 650MG FOR HEADACHE AND 0.5MG OF XANAX FOR ANXIETY AT THIS TIME.
--- NOTE | 2020-07-16 16:13 | NUR ---
PATIENT RESTING IN BED AT THIS TIME AWAKE AND ALERT AND STATES MEDICATION FOR PIAN AND ANXIETY SEEM TO BE WORKING. PATIENT STATES HE WOULD LIKE TO SIT UP IN CHAIR WHEN DINNER COMES. PATIENT ADVISED WHEN DINNER COMES WE WILL SIT HIM UP IN CHAIR.
[2020-07-16 19:00] VITALS: BP 136/78
--- NOTE | 2020-07-16 19:37 | NUR ---
RECEIVED REPORT FROM NURSE BEBO PATIENT SITTING IN BED, WATCHING TV, BREATHING EVEN UNLABORED CALL LIGHT AT REACH.
--- NOTE | 2020-07-16 20:00 | NUR ---
PATIENT ALERT ORIENTED WITH ONGOING IV NS @ 75CC/HR INFUSING WELL ON RAC, REMAINS ON TELE PACED 79, DENIES PAIN OR DISCOMFORTS BREATHING EVEN AND UNLABORED, ACTIVE BOWEL SOUNDS, LBM 12/8, CALL LIGHT AT REACH.
[2020-07-17] VITALS: BP 151/91
--- NOTE | 2020-07-17 | NUR ---
PATIENT AWAKE, RESTLESS, PATIENT REQUESTED PRN XANAX AT THIS TIME, CALL LIGHT AT REACH.
--- NOTE | 2020-07-17 03:30 | NUR ---
PATIENT REQUESTED TO BE UNHOOKED FROM IV, PATIENT EDUCATED ON THE NEEDS FOR HYDRATION, STATED THE HE KEEPS ON VOIDING AND CANT SLEEP, ASK TO BE UNHOOKED TEMPORARILY.
[2020-07-17 04:00] VITALS: BP 147/95
--- NOTE | 2020-07-17 04:06 | NUR ---
PATIENT RESTING IN BED AT THIS TIME, BREATHING UNLABORED, NO DISCOMFORTS AT THIS TIME, CALL LIGHT AT REACH.
[2020-07-17 04:20] VITALS: BP 127/81; BP 149/98
[2020-07-17 06:02] LABS: HEMOGLOBIN 13.1 g/dl (14.0-18.0); IMMATURE GRANULOCYTES 0.4 % (0.0-5.0); MEAN CELL VOLUME 95.1 fL CALC (80.0-100.0); MEAN CORPUSCULAR HGB 30.4 pG CALC (26.0-32.0); NEUT# 2.6 thou/uL (1.82-7.42); RED BLOOD COUNT 4.31 mill/uL (4.70-6.10); RED CELL DISTRI WIDTH 14.5 % (11.5-15.5)
[2020-07-17 06:16] LABS: ALBUMIN 3.7 g/dL (3.2-5.0); ALKALINE PHOSPHATASE 57 u/l (38-126); ANION GAP 9 (6-22 (CALC)); BILIRUBIN, TOTAL 0.7 mg/dL (0.0-1.4); BUN 19 mg/dL (8-23); BUN/CREATININE RATIO 16 (12-20 (CALC)); CARBON DIOXIDE 29 mmol/l (22-30); CHLORIDE 106 mmol/l (95-108); CREATININE 1.2 mg/dL (0.7-1.3); GFR 59 ML/MIN (>=60 (CALC)); GFR FOR AFR.AMER. > 60 ML/MIN (>=60 (CALC)); POTASSIUM 4.1 mmol/l (3.5-5.1); SGOT/AST 18 u/l (19-48); SODIUM 140 mmol/l (137-146); TOTAL PROTEIN 6.4 g/dL (6.3-8.2)
[2020-07-17 07:15] VITALS: BP 158/80
--- NOTE | 2020-07-17 07:15 | NUR ---
PATIENT SITTING UP AT BEDSIDE. ALERT AND ORINETED AT THIS TIME. PATIENT DENIES ANY PAIN OR BEING DIZZY AT THIS TIME. NEURO CHECKS DONE AND SHOW NO DEFFICITES AT THIS TIME. SIDERAILS UP AND CALL LIGHT WITHIN REACH.
[2020-07-17 10:30] VITALS: BP 150/97
--- NOTE | 2020-07-17 11:20 | NUR ---
PATIENT D/C AT THIS TIME. DISCHARG INSTRUCTIONS GONE OVER WITH PATIENT AND PATIENT VERBALIZES UNDERSTANDING OF D/C INSTRUCTIONS AT THIS TIME. PATIENTS TELE-MONITOR REMOVED AND IV AT THIS TIME.
--- NOTE | 2020-07-17 12:21 | NUR ---
Discharge instructions given. Patient verbalizes understanding of same. Discharged in stable condition via Wheelchair to Home with spouse. All belongings sent with pt.
== END 2020-07-17 12:21 | disposition home health service (06) ==
LOC: ED 08:45 → ED-I 10:28 → ED 10:28 → ED-I 11:15 → ED 11:46 → MS2 11:47
PROVIDERS: Family Medicine; Nurse Practitioner; ADMIT Internal Medicine; ATTEND Internal Medicine
DX: R55 Syncope and collapse (principal); R42 Dizziness and giddiness; H91.90 Unspecified hearing loss, unspecified ear; I95.1 Orthostatic hypotension; I48.91 Unspecified atrial fibrillation; I25.10 Atherosclerotic heart disease of native coronary artery without angina pectoris; G20 Parkinson's disease; F41.9 Anxiety disorder, unspecified; N40.0 Benign prostatic hyperplasia without lower urinary tract symptoms; Z79.01 Long term (current) use of anticoagulants; Z95.3 Presence of xenogenic heart valve; Z95.0 Presence of cardiac pacemaker; Z96.82 Presence of neurostimulator; Z20.828 Contact with and (suspected) exposure to other viral communicable diseases

== ENCOUNTER 2021-10-23 18:38 | Emergency (ER) | payer MEDICARE, OTHER ==
[~2021-10-23] VITALS: Ht 185.4 cm; Wt 100.0 kg
[~2021-10-23 18:38] MED LIST changes: +WELLBUTRIN XL300 MG PO; +XARELTO10 MG PO
[2021-10-23 19:03] VITALS: BP 154/91
[2021-10-23 19:28] LABS: HEMATOCRIT 40.8 % (39.0-50.0); HEMOGLOBIN 13.3 g/dl (14.0-18.0); IMMATURE GRANULOCYTES 0.5 % (0.0-5.0); MEAN CELL VOLUME 93.8 fL CALC (80.0-100.0); MEAN CORPUSCULAR HGB 30.6 pG CALC (26.0-32.0); MEAN CORPUSCULAR HGB CONC 32.6 g/dL CAL (32.0-36.0); NEUT# 3.68 thou/uL (1.82-7.42); RED BLOOD COUNT 4.35 mill/uL (4.70-6.10); RED CELL DISTRI WIDTH 15.9 % (11.5-15.5)
[2021-10-23 19:30] VITALS: BP 160/91
[2021-10-23 20:00] VITALS: BP 171/98
[2021-10-23 20:18] LABS: ALBUMIN 4.3 g/dL (3.2-5.0); BILIRUBIN, TOTAL 0.5 mg/dL (0.0-1.4); CREATININE 1.4 mg/dL (0.7-1.3); TOTAL PROTEIN 7.6 g/dL (6.3-8.2)
[2021-10-23 20:30] VITALS: BP 164/95
[2021-10-23 20:47] LABS: URINE BILIRUBIN - DIPSTICK NEGATIVE (NEGATIVE); URINE BLOOD DIPSTICK NEGATIVE (NEGATIVE); URINE COLOR YELLOW; URINE GLUCOSE - DIPSTICK NEGATIVE (NEGATIVE); URINE KETONE NEGATIVE (NEGATIVE); URINE LEUK ESTERASE NEGATIVE (NEGATIVE); URINE PROTEIN - DIPSTICK NEGATIVE (NEG-TRACE); URINE UROBILINOGEN - DIPSTICK 0.2 E.U./dL (0.2)
[2021-10-23 20:49] LABS: URINE NITRITE - DIPSTICK NEGATIVE (Negative)
[2021-10-23 22:36] VITALS: BP 164/95
== END 2021-10-23 22:47 | disposition home or self-care (01) ==
LOC: ED 18:38
PROVIDERS: Emergency Medicine
DX: R60.0 Localized edema (principal); I10 Essential (primary) hypertension; G20 Parkinson's disease; F41.9 Anxiety disorder, unspecified; M10.9 Gout, unspecified; Z95.2 Presence of prosthetic heart valve; Z95.0 Presence of cardiac pacemaker; Z20.822 Contact with and (suspected) exposure to COVID-19
CPT/HCPCS: Q9967

== ENCOUNTER 2021-12-10 11:44 | Observation (INO) | payer MEDICARE, OTHER ==
[2021-12-10] VITALS (18 sets, daily range): BP systolic 116–168; BP diastolic 65–101
[~2021-12-10] VITALS: Ht 185.4 cm; Wt 95.0 kg
[~2021-12-10 11:44] MED LIST changes: -OMEPRAZOLE20 M2 PO; +OMEPRAZOLE20 MG PO
[2021-12-10 12:17] LABS: HEMATOCRIT 41.1 % (39.0-50.0); HEMOGLOBIN 12.8 g/dl (14.0-18.0); IMMATURE GRANULOCYTES 0.5 % (0.0-5.0); MEAN CELL VOLUME 97.4 fL CALC (80.0-100.0); MEAN CORPUSCULAR HGB 30.3 pG CALC (26.0-32.0); MEAN CORPUSCULAR HGB CONC 31.1 g/dL CAL (32.0-36.0); NEUT# 6.26 thou/uL (1.82-7.42); RED BLOOD COUNT 4.22 mill/uL (4.70-6.10)
[2021-12-10 12:32] LABS: PROTHROMBIN TIME 10.1 SECONDS (9.0-12.5)
[2021-12-10 12:33] LABS: ANION GAP 11 (6-22 (CALC)); BILIRUBIN, TOTAL 0.5 mg/dL (0.0-1.4); BUN 30 mg/dL (8-23); BUN/CREATININE RATIO 23 (12-20 (CALC)); CARBON DIOXIDE 28 mmol/l (22-30); CHLORIDE 103 mmol/l (95-108); CREATININE 1.3 mg/dL (0.7-1.3); GFR 54 ML/MIN (>=60 (CALC)); GFR FOR AFR.AMER. > 60 ML/MIN (>=60 (CALC)); LIPASE 75 u/l (23-300); POTASSIUM 4.2 mmol/l (3.5-5.1); SODIUM 137 mmol/l (137-146); TOTAL PROTEIN 7.5 g/dL (6.3-8.2)
[2021-12-10 12:35] LABS: ALKALINE PHOSPHATASE 170 u/l (38-126); SGOT/AST 48 u/l (19-48)
[2021-12-10 12:45] LABS: MYOGLOBIN 51 ng/mL (0 - 121)
[2021-12-10] MEDS ORDERED: PREDNISONE10 MG PO (15:10)
[2021-12-10] MEDS ORDERED: TRAMADOL HCL50 MG PO (15:10)
[2021-12-10] MEDS ORDERED: TADALAFIL20 M1 PO (15:10)
[2021-12-10] MEDS ORDERED: FINASTERIDE5 MG PO (15:10)
[2021-12-10] MEDS ORDERED: MITIGARE0.6 MG PO (15:11)
[2021-12-10] MEDS ORDERED: FLUOROURACIL51 TOP (15:11)
[2021-12-10] MEDS ORDERED: QUETIAPINE FUMA25 MG PO (15:12)
[2021-12-10] MEDS ORDERED: MIRTAZAPINE15 MG PO (15:12)
[2021-12-10] MEDS ORDERED: RYTARY PO (15:13)
[2021-12-10 21:07] LABS: GFR 54 ML/MIN (>=60 (CALC)); GFR FOR AFR.AMER. > 60 ML/MIN (>=60 (CALC))
[2021-12-11] VITALS (10 sets, daily range): BP systolic 104–169; BP diastolic 71–102
[2021-12-11 05:37] LABS: URINE BILIRUBIN - DIPSTICK NEGATIVE (NEGATIVE); URINE BLOOD DIPSTICK NEGATIVE (NEGATIVE); URINE COLOR YELLOW; URINE GLUCOSE - DIPSTICK NEGATIVE (NEGATIVE); URINE KETONE NEGATIVE (NEGATIVE); URINE LEUK ESTERASE NEGATIVE (NEGATIVE); URINE NITRITE - DIPSTICK NEGATIVE (Negative); URINE PH 5.5 (4.5-8.0); URINE PROTEIN - DIPSTICK NEGATIVE (NEG-TRACE); URINE UROBILINOGEN - DIPSTICK 0.2 E.U./dL (0.2)
[2021-12-11 06:06] LABS: ANION GAP 13 (6-22 (CALC)); BUN 27 mg/dL (8-23); BUN/CREATININE RATIO 24 (12-20 (CALC)); CARBON DIOXIDE 28 mmol/l (22-30); CHLORIDE 103 mmol/l (95-108); CREATININE 1.1 mg/dL (0.7-1.3); GFR > 60 ML/MIN (>=60 (CALC)); GFR FOR AFR.AMER. > 60 ML/MIN (>=60 (CALC)); MAGNESIUM 2.1 mg/dL (1.6-2.3); POTASSIUM 4.4 mmol/l (3.5-5.1); SODIUM 139 mmol/l (137-146)
[2021-12-12] VITALS (30 sets, daily range): BP systolic 75–166; BP diastolic 37–106
[2021-12-12 05:10] LABS: HEMATOCRIT 41.5 % (39.0-50.0); HEMOGLOBIN 13.1 g/dl (14.0-18.0); MEAN CELL VOLUME 96.5 fL CALC (80.0-100.0); MEAN CORPUSCULAR HGB 30.5 pG CALC (26.0-32.0); MEAN CORPUSCULAR HGB CONC 31.6 g/dL CAL (32.0-36.0); RED BLOOD COUNT 4.3 mill/uL (4.70-6.10); RED CELL DISTRI WIDTH 14.6 % (11.5-15.5)
[2021-12-12 05:39] LABS: ANION GAP 7 (6-22 (CALC)); BUN 27 mg/dL (8-23); BUN/CREATININE RATIO 21 (12-20 (CALC)); CARBON DIOXIDE 29 mmol/l (22-30); CHLORIDE 106 mmol/l (95-108); CREATININE 1.3 mg/dL (0.7-1.3); GFR 54 ML/MIN (>=60 (CALC)); GFR FOR AFR.AMER. > 60 ML/MIN (>=60 (CALC)); POTASSIUM 4.5 mmol/l (3.5-5.1); SODIUM 137 mmol/l (137-146)
[2021-12-13] VITALS (16 sets, daily range): BP systolic 129–157; BP diastolic 82–106
[2021-12-13 04:55] LABS: HEMOGLOBIN 13.1 g/dl (14.0-18.0); MEAN CELL VOLUME 96.7 fL CALC (80.0-100.0); MEAN CORPUSCULAR HGB 30.9 pG CALC (26.0-32.0); RED BLOOD COUNT 4.24 mill/uL (4.70-6.10); RED CELL DISTRI WIDTH 14.4 % (11.5-15.5)
[2021-12-13 05:06] LABS: ANION GAP 7 (6-22 (CALC)); BUN 28 mg/dL (8-23); BUN/CREATININE RATIO 21 (12-20 (CALC)); CARBON DIOXIDE 31 mmol/l (22-30); CHLORIDE 104 mmol/l (95-108); CREATININE 1.3 mg/dL (0.7-1.3); GFR 54 ML/MIN (>=60 (CALC)); GFR FOR AFR.AMER. > 60 ML/MIN (>=60 (CALC)); POTASSIUM 4.1 mmol/l (3.5-5.1); SODIUM 137 mmol/l (137-146)
[2021-12-13] MEDS ORDERED: XARELTO10 MG PO (11:26)
[2021-12-13] MEDS ORDERED: XARELTO20 MG PO (11:58)
== END 2021-12-13 12:30 ==
LOC: ED 11:44 → ED-I 13:25 → ED 14:13 → MS2 14:14 → ICU 12-11 09:30
PROVIDERS: Nurse Practitioner; ADMIT Internal Medicine; ATTEND Internal Medicine
DX: G45.9 Transient cerebral ischemic attack, unspecified (principal); R07.9 Chest pain, unspecified; I25.10 Atherosclerotic heart disease of native coronary artery without angina pectoris; I48.19 Other persistent atrial fibrillation; F41.9 Anxiety disorder, unspecified; N40.0 Benign prostatic hyperplasia without lower urinary tract symptoms; G20 Parkinson's disease; M10.072 Idiopathic gout, left ankle and foot; Z95.3 Presence of xenogenic heart valve; Z95.0 Presence of cardiac pacemaker; Z85.828 Personal history of other malignant neoplasm of skin; Z91.81 History of falling; Z95.818 Presence of other cardiac implants and grafts; Z96.82 Presence of neurostimulator; Z20.822 Contact with and (suspected) exposure to COVID-19
CPT/HCPCS: G0378; Q9967

== ENCOUNTER 2022-04-30 10:17 | Emergency (ER) | payer MEDICARE, OTHER ==
[2022-04-30] VITALS (17 sets, daily range): BP systolic 110–178; BP diastolic 55–112
[~2022-04-30] VITALS: Ht 185.4 cm; Wt 96.0 kg
[~2022-04-30 10:17] MED LIST changes: +FINASTERIDE5 MG PO; +FLUOROURACIL51 TOP; +MIRTAZAPINE15 MG PO; +MITIGARE0.6 MG PO; +PREDNISONE10 MG PO; +QUETIAPINE FUMA25 MG PO; +TADALAFIL20 M1 PO; +TRAMADOL HCL50 MG PO; +XARELTO20 MG PO
[2022-04-30] MEDS ORDERED: TOLTERODINE TART2 MG PO (10:39)
[2022-04-30] MEDS ORDERED: ASPIRIN81 MG PO (10:40)
[2022-04-30] MEDS ORDERED: LEVETIRACETAM500 MG PO (10:41)
[2022-04-30 11:08] LABS: URINE BILIRUBIN - DIPSTICK NEGATIVE (NEGATIVE); URINE BLOOD DIPSTICK NEGATIVE (NEGATIVE); URINE COLOR YELLOW; URINE GLUCOSE - DIPSTICK NEGATIVE (NEGATIVE); URINE KETONE NEGATIVE (NEGATIVE); URINE LEUK ESTERASE NEGATIVE (NEGATIVE); URINE PH 5.5 (4.5-8.0); URINE PROTEIN - DIPSTICK NEGATIVE (NEG-TRACE); URINE SPECIFIC GRAVITY 1.025; URINE UROBILINOGEN - DIPSTICK 0.2 E.U./dL (0.2)
[2022-04-30 11:14] LABS: HEMATOCRIT 41.9 % (39.0-50.0); HEMOGLOBIN 13.9 g/dl (14.0-18.0); IMMATURE GRANULOCYTES 0.7 % (0.0-5.0); MEAN CELL VOLUME 91.9 fL CALC (80.0-100.0); MEAN CORPUSCULAR HGB 30.5 pG CALC (26.0-32.0); MEAN CORPUSCULAR HGB CONC 33.2 g/dL CAL (32.0-36.0); NEUT# 6.08 thou/uL (1.82-7.42); RED BLOOD COUNT 4.56 mill/uL (4.70-6.10)
[2022-04-30 11:15] LABS: URINE NITRITE - DIPSTICK NEGATIVE (Negative)
[2022-04-30 11:46] LABS: ALBUMIN 4.3 g/dL (3.2-5.0); ALKALINE PHOSPHATASE 123 u/l (38-126); ANION GAP 12 (6-22 (CALC)); BUN 25 mg/dL (8-23); BUN/CREATININE RATIO 19 (12-20 (CALC)); CARBON DIOXIDE 26 mmol/l (22-30); CHLORIDE 103 mmol/l (95-108); CREATININE 1.3 mg/dL (0.7-1.3); GFR FOR AFR.AMER. > 60 ML/MIN (>=60 (CALC)); GFR OTHER RACES 54 ML/MIN (>=60 (CALC)); POTASSIUM 4.1 mmol/l (3.5-5.1); SGOT/AST 48 u/l (19-48); SODIUM 137 mmol/l (137-146); TOTAL PROTEIN 7.5 g/dL (6.3-8.2)
[2022-04-30 11:56] LABS: MYOGLOBIN 59 ng/mL (0 - 121)
== END 2022-04-30 14:47 | disposition short-term general hospital (02) ==
LOC: ED 10:17
PROVIDERS: Emergency Medicine
DX: G40.909 Epilepsy, unspecified, not intractable, without status epilepticus (principal); G20 Parkinson's disease; F41.9 Anxiety disorder, unspecified; Z95.0 Presence of cardiac pacemaker; Z20.822 Contact with and (suspected) exposure to COVID-19
CPT/HCPCS: J1953; J2060

== ENCOUNTER 2022-06-18 07:26 | Emergency (ER) | payer MEDICARE, OTHER ==
[~2022-06-18] VITALS: Ht 185.4 cm; Wt 93.0 kg
[2022-06-18] VITALS (10 sets, daily range): BP systolic 125–155; BP diastolic 79–95
[~2022-06-18 07:26] MED LIST changes: +LEVETIRACETAM500 MG PO; +LEXAPRO10 MG PO; +TAMSULOSIN HCL0.4 MG PO; +TOLTERODINE TART2 MG PO
[2022-06-18] MEDS ORDERED: NAPROXEN500 MG PO (09:40)
== END 2022-06-18 10:27 ==
LOC: ED 07:26
DX: S40.011A Contusion of right shoulder, initial encounter (principal); S43.51XA Sprain of right acromioclavicular joint, initial encounter; M19.011 Primary osteoarthritis, right shoulder; G20 Parkinson's disease; F41.9 Anxiety disorder, unspecified; M10.9 Gout, unspecified; W01.0XXA Fall on same level from slipping, tripping and stumbling without subsequent striking against object, initial encounter; Y92.121 Bathroom in nursing home as the place of occurrence of the external cause; Z95.0 Presence of cardiac pacemaker

== ENCOUNTER 2022-07-17 06:23 | Day surgery (SDC) | payer MEDICARE, OTHER ==
[~2022-07-17] VITALS: Ht 185.4 cm; Wt 90.7 kg
[~2022-07-17 06:23] MED LIST changes: +MARIJUANA; +NAPROXEN500 MG PO
[2022-07-17 10:27] VITALS: BP 136/94
== END 2022-07-17 10:10 | disposition home or self-care (01) ==
LOC: ORM 06:23
PROVIDERS: ATTEND Urology
PROC: 3E0K8GC Introduction of Other Therapeutic Substance into Genitourinary Tract, Via Natural or Artificial Opening Endoscopic (ICD-10-PCS; principal; 2022-07-17)
DX: N39.41 Urge incontinence (principal); N32.3 Diverticulum of bladder; N32.89 Other specified disorders of bladder; G20 Parkinson's disease; N18.30 Chronic kidney disease, stage 3 unspecified; I48.91 Unspecified atrial fibrillation; K21.9 Gastro-esophageal reflux disease without esophagitis; N40.1 Benign prostatic hyperplasia with lower urinary tract symptoms; N13.8 Other obstructive and reflux uropathy; R35.1 Nocturia; R39.12 Poor urinary stream; R35.0 Frequency of micturition; Z95.2 Presence of prosthetic heart valve; Z87.891 Personal history of nicotine dependence; Z95.0 Presence of cardiac pacemaker; Z95.818 Presence of other cardiac implants and grafts
CPT/HCPCS: J0585

== ENCOUNTER 2022-10-03 15:03 | Observation (INO) | payer MEDICARE, OTHER ==
[~2022-10-03] VITALS: Ht 185.4 cm; Wt 90.2 kg
[2022-10-03] VITALS (11 sets, daily range): BP systolic 127–157; BP diastolic 71–93
--- NOTE | 2022-10-03 15:03 | NUR ---
PATIENT ESCORTED TO ROOM VIA WHEELCHAIR IN NAD. PROVIDER NOTIFIED OF PATIENT STATUS.
[2022-10-03 15:37] LABS: BASO% 0.5 % (0-3); EOS% 1.8 % (0-8); HEMOGLOBIN 13.1 g/dl (14.0-18.0); IMMATURE GRANULOCYTES 0.3 % (0.0-5.0); LYMPH% 23.1 % (15-41); MEAN CELL VOLUME 93.1 fL CALC (80.0-100.0); MEAN CORPUSCULAR HGB CONC 31.2 g/dL CAL (32.0-36.0); MONO% 7.7 % (2-13); NEUT% 66.6 % (42-76); RED BLOOD COUNT 4.51 mill/uL (4.70-6.10); RED CELL DISTRI WIDTH 14.6 % (11.5-15.5)
--- NOTE | 2022-10-03 15:59 | NUR ---
Reassessment of patient completed. No distress noted.
[2022-10-03 16:02] LABS: ALBUMIN 4.1 g/dL (3.2-5.0); ALKALINE PHOSPHATASE 90 u/l (38-126); ANION GAP 10 (6-22 (CALC)); BILIRUBIN, TOTAL 0.7 mg/dL (0.2-1.3); BUN 17 mg/dL (8-23); BUN/CREATININE RATIO 15 (12-20 (CALC)); CARBON DIOXIDE 27 mmol/l (22-30); CHLORIDE 104 mmol/l (95-108); CREATININE 1.1 mg/dL (0.7-1.3); GFR FOR AFR.AMER. > 60 ML/MIN (>=60 (CALC)); GFR OTHER RACES > 60 ML/MIN (>=60 (CALC)); LIPASE 55 u/l (23-300); POTASSIUM 4.1 mmol/l (3.5-5.1); SGOT/AST 26 u/l (19-48); SODIUM 138 mmol/l (137-146); TOTAL PROTEIN 7.2 g/dL (6.3-8.2)
--- NOTE | 2022-10-03 16:47 | NUR ---
Reassessment of patient completed. No distress noted.
--- NOTE | 2022-10-03 17:55 | NUR ---
PATIENT PROVIDED WITH A MEAL TRAY, TOILETED, AND ESCORTED TO ROOM 260 VIA WHEELCHAIR WITH HIS SON HIS SIDE. ASSISTED TO BED ONCE IN ROOM 260. BEDSIDE REPORT GIVEN TO PABLO MUKHERJEE. VERBALIZED UNDERSTANDING AND DECLINED ANY FURTHER NEEDS.
--- NOTE | 2022-10-03 18:20 | NUR ---
PT BROUGHT UP FROM ER TO ROOM 260. VITALS TAKEN. PT SITTING UP IN BED EATING DINNER WITH SON IN ROOM.
--- NOTE | 2022-10-03 19:45 | NUR ---
PATIENT SITTING UP IN RECLINER AT THIS TIME WITH VISITING. PATIENT IS AWAKE ALERT AND ORIENTEDX3 AND ASKING FOR XANAX FOR ANXIETY. SPOKE WITH DR UGALDE AND ORDER FOR XANAX OBTAINED-MEDICATED PATIENT WITH XANAX 0.5MG PO FOR ANXIETY. PATIENT ADMITTED FOR CHF-HX OF PARKINSONS. PATIENT WITH TREMORS NOTED TO BOTH HANDS. SWALLOWS MEDS WITHOUT ANY DIFFICULTY. LUNGS ARE CLEAR. ABD IS SOFT WITH ACTIVE BS. LAST BM WAS YESTERDAY PER PATIENT AND . NO PERIPHERAL EDEMA NOTED. PULSES ARE PALPABLED. WILL PLACE MALE PUREWICK FOR STRICT I&O. PATIENT ORIENTED TO ROOM AND SURROUNDINGS. INSTRUCTED ON USE OF NURSE CALL LIGHT SYSTEM AND TV REMOTE. SAFETY PRECAUTIONS REINFORCED. CALL LIGHT IN REACH. PATIENT ATE WELL FOR DINNER. WILL CONT TO MONITOR.
--- NOTE | 2022-10-03 22:15 | NUR ---
PATIENT RESTING IN BED WITH PUREWICK IN PLACE-DRAINING CLEAR YELLOW URINE. URINE SPEC OBTAINED AND SENT TO LAB. HS MEDSWERE GIVEN. OFFERED SNACK OR DRINK,DECLINES AT THIS TIME. SALINE LOCK TO RAC INTACT AND HEALTHY WITH GOOD BLOOD RETURN. BED ALARM IN PLACE FOR PATIENT SAFETY. SAFETY PRECAUTIONS REINFORCED. CALL LIGHT IN REACH. WILL CONT TO MONITOR.
[2022-10-03 22:37] LABS: URINE BILIRUBIN - DIPSTICK NEGATIVE (NEGATIVE); URINE BLOOD DIPSTICK NEGATIVE (NEGATIVE); URINE COLOR YELLOW; URINE GLUCOSE - DIPSTICK NEGATIVE (NEGATIVE); URINE KETONE NEGATIVE (NEGATIVE); URINE LEUK ESTERASE NEGATIVE (NEGATIVE); URINE NITRITE - DIPSTICK NEGATIVE (Negative); URINE PH 5.5 (4.5-8.0); URINE PROTEIN - DIPSTICK NEGATIVE (NEG-TRACE); URINE SPECIFIC GRAVITY 1.015; URINE UROBILINOGEN - DIPSTICK 0.2 E.U./dL (0.2)
--- NOTE | 2022-10-04 00:19 | NUR ---
PATIENT RESTING IN BED WITH EYES CLOSED. RESPS ARE EVEN AND UNLABORED. O2 SATS 98% AT THIS TIME. PUREWICK IN PLACE DRAINING YELLOW URINE. SALINE LOCK RAC INTACT. BED ALARM IN PLACE FOR PATIENT SAFETY. CALL LIGHT IN REACH. WILL CONT TO MONITOR.
[2022-10-04 04:14] VITALS: BP 133/81
--- NOTE | 2022-10-04 04:46 | NUR ---
PATIENT AWAKE AND ALERT-HAVE LEAKING FROM AROUND THE PUREWICK AND WAS PROVIDED WITHG PERICARE. PUREWICK BACK IN PLACE AND EMPTIED FOR 350CC OF YELLOW URINE. LINEN PADS WERE CHANGE. ASSISTED WITH REPOSITIONING IN BED. TELE MONITOR IN PLACE. SALINE LOCK TO RAC INTACT. BED ALARM IN PLACE FOR PATIENT SAFETY. CALL LIGHT IN REACH. [facility] .
[2022-10-04 04:49] LABS: BASO% 0.4 % (0-3); EOS% 2.4 % (0-8); HEMATOCRIT 40.7 % (39.0-50.0); HEMOGLOBIN 13.2 g/dl (14.0-18.0); IMMATURE GRANULOCYTES 0.4 % (0.0-5.0); LYMPH% 39.6 % (15-41); MEAN CELL VOLUME 92.7 fL CALC (80.0-100.0); MEAN CORPUSCULAR HGB 30.1 pG CALC (26.0-32.0); MEAN CORPUSCULAR HGB CONC 32.4 g/dL CAL (32.0-36.0); MONO% 8.5 % (2-13); NEUT# 2.22 thou/uL (1.82-7.42); NEUT% 48.7 % (42-76); RED BLOOD COUNT 4.39 mill/uL (4.70-6.10); RED CELL DISTRI WIDTH 14.4 % (11.5-15.5)
[2022-10-04 05:01] LABS: ANION GAP 9 (6-22 (CALC)); BUN 17 mg/dL (8-23); BUN/CREATININE RATIO 16 (12-20 (CALC)); CARBON DIOXIDE 30 mmol/l (22-30); CHLORIDE 103 mmol/l (95-108); CREATININE 1.1 mg/dL (0.7-1.3); GFR FOR AFR.AMER. > 60 ML/MIN (>=60 (CALC)); GFR OTHER RACES > 60 ML/MIN (>=60 (CALC)); POTASSIUM 3.8 mmol/l (3.5-5.1); SODIUM 138 mmol/l (137-146)
--- NOTE | 2022-10-04 06:36 | NUR ---
PATIENT WITH SOME LEAKING FROM AROUND PUREWICK. PROVIDED WITH PERICARE WITH SOAP AND WATER AND PUREWICK ADJUSTED. CONT TO DRAIN CLEAR YELLOW URINE. GOWN AND LINENS CHANGED. TELE MONITOR IN PLACE. SALINE LOCK TO RAC INTACT. SAFETY PRECAUTIONS REINFORCED. BED ALARM INPLACE. CALL LIGHT IN REACH. WILL CONT TO MONITOR.
[2022-10-04 06:51] VITALS: BP 132/81
--- NOTE | 2022-10-04 07:29 | NUR ---
BEDSIDE SHIFT REPORT, PT AWAKE ALERT AND ORIENTED RESTING IN BED, C/O ANXIETY AND THIS CONDITION ADDRESSED, DENIES PAIN, TELE MONITOR IN PLACE, CALL VALLE IN REACH AND BED LOCKED IN LOWEST POSITION.
[2022-10-04 07:51] VITALS: BP 133/85
--- NOTE | 2022-10-04 12:05 | NUR ---
PT REQUESTED TO HAVE SHOWER AND REFUSED TO EAT MEAL UNTIL SHOWERED, SET UP AND ASSISTED BY 2 STAFF FOR MEGHNAER, ASSISTED WITH AMBULATION USING WALKER AND STAFF ASSIST TO BR, REQUESTED TO REMOVE PUREWICK CATHETER STATING HE DOES NOT LIKE IT, URINAL OFFERED AFTER REMOVAL CATHETER, BED ALARM ACTIVATED AND CALL VALLE IN REACH.
[2022-10-04 15:22] VITALS: BP 133/85
--- NOTE | 2022-10-04 16:19 | NUR ---
SITTING UP IN RECLINER, FAMILY MEMBERS VISITING AND ASKED TO BRING IN NON-FORMULARY MEDS FOR PT. PT IS VERY UNSTEADY AND NEEDS ASSISTANCE TO USE URINAL, BED ALARMED.
[2022-10-04 18:57] VITALS: BP 113/65
--- NOTE | 2022-10-04 20:19 | NUR ---
PATIENT RESTING IN BED-AWAKE ALERT AND ORIENTEDX3. PATIENT WITH TELE MONITOR IN PLACE. LAST READING WAS PACED IN THE 70'S. SALINE LOCK TO RAC INTACT AND HEALTHY WITH GOOD BLOOD RETURN. LUNGS ARE CLEAR. ABD IS SOFT WITH ACTIVE BS. NO PERIPHERAL EDEMA-PULSES ARE PALPABLE.PATIENT ASSIST OOB TO THE BR TO ATTEMPT TO VOID. UNSTEADY ON HIS FEET USING THE ROLLING WALKER. UNABLE TO VOID IN URINAL AT THIS TIME. ASSISTED BACK TO BED AND POSITIONED IN BED. OFFERED PATIENT TO TRY THE PUREWICK CATH AGAIN BUT PATIENT DECLINED AT THIS TIME. MEDICATED WITH HS MEDS INCLUDING XANAX 0.5MG PO FOR ANXIETY. PATIENT ABLE TO SWALLOW MEDICATIONS WITHOUT ANY DIFFICULTY. HOB REMAINS ELEVATED. SAFETY PRECAUTIONS REINFORCED. BED ALARM IN PLACE FOR PATIENT SAFETY. CALL LIGHT IN REACH. WILL CONT TO MONITOR.
--- NOTE | 2022-10-04 23:32 | NUR ---
PATIENT SITTING UP IN BED WITH EYES CLOSED. RESPS ARE EVEN AND UNLABORED. TELE MONITOR IN PLACE WITH LAST READING PACED-79. SALINE LOCK TO RAC INTACT. BED ALARM IN PLACE FOR PATIENT SAFETY. CALL LIGHT IN REACH. WILL CONT TO MONITOR.
[2022-10-05] VITALS (7 sets, daily range): BP systolic 128–161; BP diastolic 76–99
--- NOTE | 2022-10-05 04:24 | NUR ---
PATIENT RESTING IN BED-CALLING OUT AND RESPONDED TO ROOM. PATIENT WITH PUREWICK IN PLACE FOR ACCURATE I&O. STATES THAT HE HAS TO URINATE AND EXPLAINED TO THE PATIENT THAT THE PUREWICK WAS IN PLACE AND HE COULD LET THE URINE FLOW. PATIENT WAS ABLE TO PASS APPROX 125CC OF YELLOW URINE. PATIENT REASSURED AND RESTING IN BED. TELE MONITOR IN PLACE. CALL LIGHT IN REACH. BED ALARM IN PLACE FOR PATIENT SAFETY. WILL CONT TO MONITOR.
[2022-10-05 05:05] LABS: BASO% 0.4 % (0-3); HEMATOCRIT 40.5 % (39.0-50.0); HEMOGLOBIN 12.9 g/dl (14.0-18.0); IMMATURE GRANULOCYTES 0.4 % (0.0-5.0); LYMPH% 31.9 % (15-41); MEAN CELL VOLUME 93.3 fL CALC (80.0-100.0); MEAN CORPUSCULAR HGB 29.7 pG CALC (26.0-32.0); MEAN CORPUSCULAR HGB CONC 31.9 g/dL CAL (32.0-36.0); MONO% 8.1 % (2-13); NEUT# 2.88 thou/uL (1.82-7.42); NEUT% 57.2 % (42-76); RED BLOOD COUNT 4.34 mill/uL (4.70-6.10); RED CELL DISTRI WIDTH 14.4 % (11.5-15.5)
[2022-10-05 05:21] LABS: ALBUMIN 3.5 g/dL (3.2-5.0); ALKALINE PHOSPHATASE 77 u/l (38-126); ANION GAP 11 (6-22 (CALC)); BILIRUBIN, TOTAL 0.6 mg/dL (0.2-1.3); BUN 19 mg/dL (8-23); BUN/CREATININE RATIO 19 (12-20 (CALC)); CARBON DIOXIDE 28 mmol/l (22-30); CHLORIDE 104 mmol/l (95-108); GFR FOR AFR.AMER. > 60 ML/MIN (>=60 (CALC)); GFR OTHER RACES > 60 ML/MIN (>=60 (CALC)); POTASSIUM 4.2 mmol/l (3.5-5.1); SGOT/AST 18 u/l (19-48); SODIUM 138 mmol/l (137-146); TOTAL PROTEIN 6.2 g/dL (6.3-8.2)
--- NOTE | 2022-10-05 08:00 | NUR ---
SHIFT CHANGE REPORT, PT AWAKE ALERT AND ORIENTED SITTING UP IN RECLINER AFTER SHOWERING, TELE MOITOR IN PLACE, CALL VALLE IN REACH AND BED LOCKED IN LOWEST POSITION.
--- NOTE | 2022-10-05 09:20 | NUR ---
CONTACTED DR MEDELLIN'S OFFICE TO SCHEDULE A PHYSICIAN'S CONSULT. I SPOKE WITH ASH AT 0920 HRS.
[2022-10-05] MEDS ORDERED: LASIX 20 MG TAB20 MG PO (10:08)
--- NOTE | 2022-10-05 12:00 | NUR ---
ASSISTED WITH URINATING, SPOUSE AT BEDSIDE, NO C/O DISCOMFORT.
--- NOTE | 2022-10-05 14:15 | NUR ---
C/O ANXIETY AND REQUESTING ANTIANXIETY MED, REQUEST HONORED, ALL NEEDS ADDRESSED.
--- NOTE | 2022-10-05 16:00 | NUR ---
TRANSPORTED OFF UNIT VIA W/C TO ECHO PROCEDURE, BEING TRANPSORTED BACK TO UNIT AT THIS TIME, WILL CONTINUE TO MONITOR.
--- NOTE | 2022-10-05 18:15 | NUR ---
Discharge instructions given. Patient verbalizes understanding of same. Discharged in stable condition via Wheelchair to Home with spouse. All belongings sent with pt.
== END 2022-10-05 18:04 | disposition home health service (06) ==
LOC: ED 15:03 → ED-I 17:35 → ED 17:35 → ED-I 17:36 → ED 17:42 → MS2 17:43
PROVIDERS: Emergency Medicine; ADMIT Internal Medicine; ATTEND Internal Medicine
DX: I11.0 Hypertensive heart disease with heart failure (principal); I50.23 Acute on chronic systolic (congestive) heart failure; N18.9 Chronic kidney disease, unspecified; G20 Parkinson's disease; I25.10 Atherosclerotic heart disease of native coronary artery without angina pectoris; I48.19 Other persistent atrial fibrillation; I49.5 Sick sinus syndrome; R62.7 Adult failure to thrive; K21.9 Gastro-esophageal reflux disease without esophagitis; F41.9 Anxiety disorder, unspecified; F32.A Depression, unspecified; M10.9 Gout, unspecified; N40.0 Benign prostatic hyperplasia without lower urinary tract symptoms; S43.51XA Sprain of right acromioclavicular joint, initial encounter; X58.XXXA Exposure to other specified factors, initial encounter; Z96.82 Presence of neurostimulator; Z95.818 Presence of other cardiac implants and grafts; Z95.0 Presence of cardiac pacemaker; Z95.3 Presence of xenogenic heart valve

== ENCOUNTER 2022-10-07 13:41 | Inpatient (IN) | payer MEDICARE, OTHER ==
[~2022-10-07] VITALS: Ht 185.4 cm; Wt 86.6 kg
[~2022-10-07 13:41] MED LIST changes: +LASIX 20 MG TAB20 MG PO
[2022-10-07 14:18] LABS: BASO% 0.6 % (0-3); EOS% 1.4 % (0-8); HEMATOCRIT 43.6 % (39.0-50.0); HEMOGLOBIN 13.5 g/dl (14.0-18.0); IMMATURE GRANULOCYTES 0.2 % (0.0-5.0); LYMPH% 26.6 % (15-41); MEAN CELL VOLUME 93.8 fL CALC (80.0-100.0); MONO% 9.1 % (2-13); NEUT# 3.98 thou/uL (1.82-7.42); NEUT% 62.1 % (42-76); RED BLOOD COUNT 4.65 mill/uL (4.70-6.10); RED CELL DISTRI WIDTH 14.4 % (11.5-15.5)
[2022-10-07 14:26] LABS: ALBUMIN 4.1 g/dL (3.2-5.0); ALKALINE PHOSPHATASE 93 u/l (38-126); ANION GAP 11 (6-22 (CALC)); BILIRUBIN, TOTAL 0.8 mg/dL (0.2-1.3); BUN 22 mg/dL (8-23); BUN/CREATININE RATIO 20 (12-20 (CALC)); CARBON DIOXIDE 28 mmol/l (22-30); CHLORIDE 103 mmol/l (95-108); CREATININE 1.1 mg/dL (0.7-1.3); GFR FOR AFR.AMER. > 60 ML/MIN (>=60 (CALC)); GFR OTHER RACES > 60 ML/MIN (>=60 (CALC)); POTASSIUM 4.2 mmol/l (3.5-5.1); SGOT/AST 24 u/l (19-48); SODIUM 137 mmol/l (137-146); TOTAL PROTEIN 7.6 g/dL (6.3-8.2)
[2022-10-07 19:22] VITALS: BP 142/80
[2022-10-08 00:20] VITALS: BP 147/95
[2022-10-08 03:41] VITALS: BP 130/69
[2022-10-08 06:28] VITALS: BP 114/65
[2022-10-08 10:28] VITALS: BP 132/75
[2022-10-08 14:42] VITALS: BP 133/79
[2022-10-08 18:59] VITALS: BP 105/56
[2022-10-09 00:18] VITALS: BP 107/63
[2022-10-09 04:20] VITALS: BP 128/70
[2022-10-09 05:47] LABS: BASO% 0.8 % (0-3); EOS% 1.5 % (0-8); HEMATOCRIT 41.6 % (39.0-50.0); HEMOGLOBIN 13.4 g/dl (14.0-18.0); IMMATURE GRANULOCYTES 0.3 % (0.0-5.0); LYMPH% 21.5 % (15-41); MEAN CELL VOLUME 92.9 fL CALC (80.0-100.0); MEAN CORPUSCULAR HGB 29.9 pG CALC (26.0-32.0); MEAN CORPUSCULAR HGB CONC 32.2 g/dL CAL (32.0-36.0); MONO% 9.2 % (2-13); NEUT# 4.34 thou/uL (1.82-7.42); NEUT% 66.7 % (42-76); RED BLOOD COUNT 4.48 mill/uL (4.70-6.10); RED CELL DISTRI WIDTH 14.3 % (11.5-15.5)
[2022-10-09 06:01] LABS: ALKALINE PHOSPHATASE 85 u/l (38-126); ANION GAP 9 (6-22 (CALC)); BILIRUBIN, TOTAL 0.9 mg/dL (0.2-1.3); BUN 16 mg/dL (8-23); BUN/CREATININE RATIO 16 (12-20 (CALC)); CARBON DIOXIDE 31 mmol/l (22-30); CHLORIDE 101 mmol/l (95-108); GFR FOR AFR.AMER. > 60 ML/MIN (>=60 (CALC)); GFR OTHER RACES > 60 ML/MIN (>=60 (CALC)); SGOT/AST 21 u/l (19-48); SODIUM 136 mmol/l (137-146); TOTAL PROTEIN 7.5 g/dL (6.3-8.2)
[2022-10-09 07:25] VITALS: BP 117/66
[2022-10-09 16:13] VITALS: BP 121/66
[2022-10-09 16:49] LABS: CHOLESTEROL HDL RATIO 3.3 (<4.4 (CALC))
[2022-10-09 19:32] VITALS: BP 137/79
[2022-10-09 23:26] VITALS: BP 145/67
[2022-10-10] VITALS (10 sets, daily range): BP systolic 74–168; BP diastolic 43–96
[2022-10-11] VITALS: BP 149/81
[2022-10-11 06:06] VITALS: BP 144/88
[2022-10-11 06:11] VITALS: BP 141/88
[2022-10-11 06:16] VITALS: BP 113/67
[2022-10-11 06:32] VITALS: BP 113/67
[2022-10-11 07:47] VITALS: BP 113/67
== END 2022-10-11 12:00 | disposition home or self-care (01) | DRG 57 ==
LOC: ED 13:41 → ED-I 14:28 → ED 14:28 → ED-I 15:30 → ED 17:32 → MS2 17:33
PROVIDERS: Family Medicine; Nurse Practitioner Family; Psychiatry & Neurology Neurology; ADMIT Internal Medicine; ATTEND Internal Medicine
DX: G90.3 Multi-system degeneration of the autonomic nervous system (principal); I13.0 Hypertensive heart and chronic kidney disease with heart failure and stage 1 through stage 4 chronic kidney disease, or unspecified chronic kidney disease; I50.22 Chronic systolic (congestive) heart failure; I48.19 Other persistent atrial fibrillation; N18.9 Chronic kidney disease, unspecified; G20 Parkinson's disease; I49.5 Sick sinus syndrome; I25.10 Atherosclerotic heart disease of native coronary artery without angina pectoris; G40.909 Epilepsy, unspecified, not intractable, without status epilepticus; T44.7X5A Adverse effect of beta-adrenoreceptor antagonists, initial encounter; T50.2X5A Adverse effect of carbonic-anhydrase inhibitors, benzothiadiazides and other diuretics, initial encounter; N40.0 Benign prostatic hyperplasia without lower urinary tract symptoms; Z95.818 Presence of other cardiac implants and grafts; Z95.1 Presence of aortocoronary bypass graft; Z95.0 Presence of cardiac pacemaker; Z95.3 Presence of xenogenic heart valve; K21.9 Gastro-esophageal reflux disease without esophagitis; F41.9 Anxiety disorder, unspecified; F32.A Depression, unspecified; Z96.82 Presence of neurostimulator
CPT/HCPCS: G0378; J1650; S0164

== ENCOUNTER 2022-12-25 08:14 | Day surgery (SDC) | payer MEDICARE, OTHER ==
[~2022-12-25] VITALS: Ht 182.9 cm; Wt 90.7 kg
[~2022-12-25 08:14] MED LIST changes: +SEROQUEL25 MG PO
[2022-12-25 13:01] VITALS: BP 158/108
== END 2022-12-25 13:17 | disposition home or self-care (01) ==
LOC: ORM 08:14
PROVIDERS: ATTEND Urology
PROC: 3E0K8GC Introduction of Other Therapeutic Substance into Genitourinary Tract, Via Natural or Artificial Opening Endoscopic (ICD-10-PCS; principal; 2022-12-25)
DX: N39.41 Urge incontinence (principal); G20 Parkinson's disease; N32.89 Other specified disorders of bladder; N40.1 Benign prostatic hyperplasia with lower urinary tract symptoms; R35.0 Frequency of micturition; R35.1 Nocturia; N52.9 Male erectile dysfunction, unspecified; N18.30 Chronic kidney disease, stage 3 unspecified; I48.91 Unspecified atrial fibrillation; Z87.891 Personal history of nicotine dependence; Z95.0 Presence of cardiac pacemaker; Z95.818 Presence of other cardiac implants and grafts; Z95.2 Presence of prosthetic heart valve
CPT/HCPCS: J0585; J1956

== ENCOUNTER 2022-12-28 18:24 | Emergency (ER) | payer MEDICARE, OTHER ==
[~2022-12-28] VITALS: Ht 182.9 cm; Wt 90.7 kg
[2022-12-28] MEDS ORDERED: TRAMADOL HYDROC50 M1 PO (20:27)
[2022-12-28 20:36] VITALS: BP 129/75
== END 2022-12-28 20:36 | disposition home or self-care (01) ==
LOC: ED 18:24
DX: S60.221A Contusion of right hand, initial encounter (principal); M54.50 Low back pain, unspecified; M25.561 Pain in right knee; I50.9 Heart failure, unspecified; G20 Parkinson's disease; I48.91 Unspecified atrial fibrillation; W01.0XXA Fall on same level from slipping, tripping and stumbling without subsequent striking against object, initial encounter; Y92.009 Unspecified place in unspecified non-institutional (private) residence as the place of occurrence of the external cause; Z86.73 Personal history of transient ischemic attack (TIA), and cerebral infarction without residual deficits; Z95.0 Presence of cardiac pacemaker; Z95.818 Presence of other cardiac implants and grafts

== ENCOUNTER 2023-01-13 17:41 | Inpatient (IN) | payer MEDICARE, OTHER ==
[2023-01-13] VITALS (10 sets, daily range): BP systolic 136–160; BP diastolic 82–97
[~2023-01-13] VITALS: Ht 182.9 cm; Wt 86.2 kg
[~2023-01-13 17:41] MED LIST changes: +TRAMADOL HYDROC50 M1 PO
--- NOTE | 2023-01-13 17:54 | NUR ---
PATIENT TO ROOM VIA EMS.
[2023-01-13 18:17] LABS: BASO% 0.4 % (0-3); EOS% 2.5 % (0-8); HEMATOCRIT 40.1 % (39.0-50.0); HEMOGLOBIN 12.8 g/dl (14.0-18.0); IMMATURE GRANULOCYTES 1.2 % (0.0-5.0); LYMPH% 32.3 % (15-41); MEAN CELL VOLUME 91.3 fL CALC (80.0-100.0); MEAN CORPUSCULAR HGB 29.2 pG CALC (26.0-32.0); MEAN CORPUSCULAR HGB CONC 31.9 g/dL CAL (32.0-36.0); MONO% 7.6 % (2-13); NEUT# 4.29 thou/uL (1.82-7.42); RED BLOOD COUNT 4.39 mill/uL (4.70-6.10); RED CELL DISTRI WIDTH 14.6 % (11.5-15.5)
[2023-01-13 18:35] LABS: ALBUMIN 3.8 g/dL (3.2-5.0); ALKALINE PHOSPHATASE 99 u/l (38-126); ANION GAP 11 (6-22 (CALC)); BILIRUBIN, TOTAL 0.5 mg/dL (0.2-1.3); BUN 24 mg/dL (8-23); BUN/CREATININE RATIO 19 (12-20 (CALC)); CARBON DIOXIDE 29 mmol/l (22-30); CHLORIDE 104 mmol/l (95-108); CREATININE 1.3 mg/dL (0.7-1.3); GFR FOR AFR.AMER. > 60 ML/MIN (>=60 (CALC)); GFR OTHER RACES 54 ML/MIN (>=60 (CALC)); POTASSIUM 3.8 mmol/l (3.5-5.1); SGOT/AST 25 u/l (19-48); SODIUM 140 mmol/l (137-146); TOTAL PROTEIN 6.9 g/dL (6.3-8.2)
[2023-01-13 21:16] LABS: URINE BILIRUBIN - DIPSTICK NEGATIVE (NEGATIVE); URINE BLOOD DIPSTICK NEGATIVE (NEGATIVE); URINE COLOR YELLOW; URINE GLUCOSE - DIPSTICK NEGATIVE (NEGATIVE); URINE KETONE NEGATIVE (NEGATIVE); URINE LEUK ESTERASE NEGATIVE (NEGATIVE); URINE PH 5.5 (4.5-8.0); URINE PROTEIN - DIPSTICK NEGATIVE (NEG-TRACE); URINE SPECIFIC GRAVITY >=1.030; URINE UROBILINOGEN - DIPSTICK 0.2 E.U./dL (0.2)
[2023-01-13 21:17] LABS: URINE NITRITE - DIPSTICK NEGATIVE (Negative)
--- NOTE | 2023-01-13 22:10 | NUR ---
REPORT RECEIVED FROM RUDY SHAH AND CARE RESUMED AT THIS TIME. CALL LIGHT WITHIN REACH. PTS DAUGHTER AT BEDSIDE.
--- NOTE | 2023-01-13 23:15 | NUR ---
PT LAYING IN RM AWAITING ADMISSION AT THIS TIME. CALL LIGHT WITHIN REACH AND PT HAS NO NEEDS OR CONCERNS AT THIS TIME.
--- NOTE | 2023-01-14 00:20 | NUR ---
PT RESTING IN RM AWAITING ADMISSION UPSTAIRS TO MED SURG. CALL LIGHT WITHIN REACH AND PT HAS NO NEEDS OR CONCERNS.
--- NOTE | 2023-01-14 00:46 | NUR ---
REPORT GIVEN TO SILVIO SHAH AT THIS TIME ON MED SURG. CALL LIGHT WITHIN REACH. PT TO BE TRANSPORTED UPSTAIRS SHORTLY.
--- NOTE | 2023-01-14 01:45 | NUR ---
Admission Note Report Given to: SILVIO SHAH Transported by: Wheelchair X Stretcher Transported with: X Nurse Transporter X Patent IV O2 X Pit Manager Location: ICU X [facility]
[2023-01-14 02:19] VITALS: BP 146/85
--- NOTE | 2023-01-14 02:46 | NUR ---
REPORT RECEIVED FROM ER NURSE. PATIENT ARRIVED TO ROOM 280 VIA STRETCHER AT 0150. PATIENT AWAKE AND ALERT. ABLE TO ANSWER QUESTIONS APPROPRIATELY. AIRBORNE PRECAUTIONS INITIATED R/T DX OF COVID. HEAD TO TOE ASSESSMENT COMPLETED. PATIENT ORIENTED TO ROOM AND CALL LIGHT. SAFETY MEASURES INITIATED. DENIES PAINOR DISCOMFORT AT THIS TIME. RESPIRATIONS EVEN AND UNLABORED ON ROOM AIR. CALL LIGHT WITHIN REACH.
[2023-01-14 05:12] LABS: BASO% 0.5 % (0-3); EOS% 2.2 % (0-8); HEMATOCRIT 39.8 % (39.0-50.0); HEMOGLOBIN 12.5 g/dl (14.0-18.0); IMMATURE GRANULOCYTES 0.8 % (0.0-5.0); LYMPH% 32.7 % (15-41); MEAN CELL VOLUME 91.5 fL CALC (80.0-100.0); MEAN CORPUSCULAR HGB 28.7 pG CALC (26.0-32.0); MEAN CORPUSCULAR HGB CONC 31.4 g/dL CAL (32.0-36.0); MONO% 8.7 % (2-13); NEUT# 3.44 thou/uL (1.82-7.42); NEUT% 55.1 % (42-76); RED BLOOD COUNT 4.35 mill/uL (4.70-6.10); RED CELL DISTRI WIDTH 14.5 % (11.5-15.5)
--- NOTE | 2023-01-14 05:29 | NUR ---
PATIENT ASLEEP IN BED. RESPIRATIONS EVEN AND UNLABORED ON ROOM AIR. IN NO APPARENT DISTRESS. AIRBORNE PRECAUTIONS MAINTAINED. SAFETY MEASURES IN PLACE. CALL LIGHT WITHIN REACH.
[2023-01-14 05:41] LABS: ALBUMIN 3.5 g/dL (3.2-5.0); ALKALINE PHOSPHATASE 94 u/l (38-126); ANION GAP 9 (6-22 (CALC)); BILIRUBIN, TOTAL 0.4 mg/dL (0.2-1.3); BUN 24 mg/dL (8-23); BUN/CREATININE RATIO 23 (12-20 (CALC)); CARBON DIOXIDE 29 mmol/l (22-30); CHLORIDE 106 mmol/l (95-108); CREATININE 1.1 mg/dL (0.7-1.3); GFR FOR AFR.AMER. > 60 ML/MIN (>=60 (CALC)); GFR OTHER RACES > 60 ML/MIN (>=60 (CALC)); SGOT/AST 29 u/l (19-48); SODIUM 140 mmol/l (137-146); TOTAL PROTEIN 6.5 g/dL (6.3-8.2)
--- NOTE | 2023-01-14 06:59 | NUR ---
PATIENT AWAKE IN BED AND EXHIBITING ANXIOUS BEHAVIOR. WILL MAKE ONCOMING NURSE AWARE OF BEHAVIOR. PATIENT REASSURED ANSD REMINDED THAT HE IS IN THE HOSPITAL. PATIENT ALSO NOTED TO TAKE OFF SCDs AND STATES THAT HE FEELS "LOCKED IN". SAFETY MEASURES IN PLACE AND AIRBORNE PRECAUTIONS MAINTAINED. CALL LIGTH WITHIN REACH.
[2023-01-14 07:27] VITALS: BP 167/95
--- NOTE | 2023-01-14 07:46 | NUR ---
PT RESTING IN SEMI FOWLERS POSITION. PT A/O TO SELF HEART RHYTHM TELE. RESPIRAITONS ROOM AIR. PT REQUESTED MALE PURE WICK TO BE ADJUSTED. AID ADJUSTED AND HELPED WITH ELIMINATION. PT IV SITE NOTED TO RFA. NS INFUSING. PT ON BED ALARM ACTIVE .
--- NOTE | 2023-01-14 08:50 | NUR ---
PT AGITATED STATED IF MEDICATION TO CALM DOWN NOT ADMINSITERED WILL GET OUT OF ROOM .PT EDUCATED NEED OF STAYING IN ROOM AND NOT GETTING UP UNSUPERVISED PER FALL RISK. PT NEEDS REINFORCEMENT .PROVIDER CALLED . PROVIDER EVALUATED PT AND MEDICATION ORDER PROVIDED PER EMAR.
[2023-01-14 11:00] VITALS: BP 144/94
--- NOTE | 2023-01-14 11:55 | NUR ---
PT RESTING CALMLY IN BED . BED ALARM ACTIVE.
[2023-01-14 15:00] VITALS: BP 158/98
[2023-01-14 16:20] VITALS: BP 149/102
--- NOTE | 2023-01-14 16:59 | NUR ---
PT RESTING IN CHAIR. WITH BED ALARM ACTIVE PT REQUESTED ANS WAS PROVIDED WITH ICE CREAM. PT REQUESTED MEDICATION TO HELP CALM DOWN. XANAX 0.5MG ORDERED AND PROVIDED BY EMAR. PT DENIES ADDITIONAL NEEDS AT THE TIME ALL SAFETY PRECAUTIONS IN PLACE BED ALARM ACTIVE.
--- NOTE | 2023-01-14 19:32 | NUR ---
PT HOME MEDICATION IN MED ROOM.
[2023-01-14 19:42] VITALS: BP 104/69
--- NOTE | 2023-01-14 19:55 | NUR ---
BEDSIDE REPORT RECEIVED FROM OFF GOING NURSE. PATIENT AWAKE SITTING UP ION RECLINER IN ROOM. CHAIR ALARM ACTIVATED FOR SAFETY. DENIES PAIN OR DISCOMFORT. RESPIRATIONS EVEN AND UNLABORED ON ROOM AIR. AIRBORNE PRECAUTIONS MAINTAINED. CALL LIGHT WITHIN REACH.
--- NOTE | 2023-01-14 22:44 | NUR ---
PATIENT ASLEEP IN BED. RESPIRATIONS EVEN AND UNLABORED ON ROOM AIR. SAFETY MEASURES IN PLACE. CALL LIGHT WITHIN REACH.
[2023-01-15] VITALS (7 sets, daily range): BP systolic 98–150; BP diastolic 55–94
--- NOTE | 2023-01-15 02:41 | NUR ---
PATIENT ASLEEP IN BED. RESPIRATIONS EVEN AND UNLABORED ON ROOM AIR. AIRBORNE PRECAUTIONS MAINTAINED. CALL LIGHT WITHIN REACH.
[2023-01-15 07:03] LABS: C-REACTIVE PROTEIN 0.9 mg/dL (0-0.9)
--- NOTE | 2023-01-15 08:11 | NUR ---
PERFORMED BEDSIDE REPORT WITH NIGHTSHIFT NURSE. PT IS ON AIRBORN PRECAUTIONS. UPON ENTERING PT WAS TRYING TO STAND OUT OF BED. BED ALARM WAS NOT ON. PT IS NOT STEADY ON FEET AND X2 ASSIST. WAS ABLE TO REDIRECT PT TO SIT DOWN INTO CHAIR AND ASSISTED CHIEF ELECTRICIAN WITH GETTING HIM INTO SHOWER. PT IS A/OX2 TO SELF AND PLACE. PT ON ROOM AIR. SKIN INTACT BUT BRUISE NOTED ON RT HIP. PT STATED FROM FALL. CHIEF ELECTRICIAN IN BATHROOM ASSISTING PT WITH SHOWERING. CALL VALLE WITHIN REACH AND SAFETY PRECAUTIONS IN PLACE.
[2023-01-15 08:12] LABS: BASO% 0.3 % (0-3); EOS% 2.1 % (0-8); HEMATOCRIT 43.8 % (39.0-50.0); HEMOGLOBIN 13.5 g/dl (14.0-18.0); IMMATURE GRANULOCYTES 0.8 % (0.0-5.0); LYMPH% 34.1 % (15-41); MEAN CELL VOLUME 92.8 fL CALC (80.0-100.0); MEAN CORPUSCULAR HGB 28.6 pG CALC (26.0-32.0); MEAN CORPUSCULAR HGB CONC 30.8 g/dL CAL (32.0-36.0); MONO% 6.2 % (2-13); NEUT# 3.56 thou/uL (1.82-7.42); NEUT% 56.5 % (42-76); RED BLOOD COUNT 4.72 mill/uL (4.70-6.10); RED CELL DISTRI WIDTH 14.5 % (11.5-15.5)
[2023-01-15 08:21] LABS: ALKALINE PHOSPHATASE 121 u/l (38-126); ANION GAP 11 (6-22 (CALC)); BUN 23 mg/dL (8-23); BUN/CREATININE RATIO 23 (12-20 (CALC)); CARBON DIOXIDE 28 mmol/l (22-30); CHLORIDE 103 mmol/l (95-108); GFR FOR AFR.AMER. > 60 ML/MIN (>=60 (CALC)); GFR OTHER RACES > 60 ML/MIN (>=60 (CALC)); MAGNESIUM 1.9 mg/dL (1.6-2.3); POTASSIUM 4.1 mmol/l (3.5-5.1); SGOT/AST 31 u/l (19-48); SODIUM 139 mmol/l (137-146)
[2023-01-15 08:22] LABS: BILIRUBIN, TOTAL 0.6 mg/dL (0.2-1.3)
--- NOTE | 2023-01-15 10:36 | NUR ---
PT STOOD UP FROM CHAIR TO REPOSITION CARMINA. LEG DID NOT MOVE. SAT BACK IN CHAIR WITH LEGS RECLINED.
--- NOTE | 2023-01-15 12:00 | NUR ---
PT IS SITTING UP INCHAIR, CHAIR ALARM ON. PT EATING LUNCH AT THIS TIME AND WATCHIN GTV. DENIES ANY PAIN. CALL LIGHT WITHIN REACH AND SAFETY PRECAUTIONS IN PLACE.
--- NOTE | 2023-01-15 14:00 | NUR ---
ASSISTED PT WITH GETTING INTO BED. PT LAYING SEMI FOWLERS, DENIES ANY PAIN AT THIS TIME. CALL LIGHT WITIN REACH AND SFETY PRECAUTIONS IN PLACE. BED ALARM ON.
--- NOTE | 2023-01-15 17:00 | NUR ---
ASSITED PT WITH GETTING UP OUT OF BED AND INTO CHAIR. CHAIR ALARM PLACED ON PT. DINNER TRAY AND TABLE SET INFRONT OF PT. CALL LIGHT WITHIN REACH AND SAFETY PRECAUTIONS IN PLACE.
--- NOTE | 2023-01-16 03:52 | NUR ---
PATIENT IN BED ASLEEP. SAFETY MEASURES IN PLACE. AIRBORNE PRECAUTIONS MAINTAINED. RESPIRATIONS EVEN AND UNLABORED ON ROOM AIR. CALL LIGTH WITHIN REACH.
[2023-01-16 05:11] VITALS: BP 140/84
[2023-01-16 06:00] VITALS: BP 138/79
--- NOTE | 2023-01-16 06:20 | NUR ---
PATIENT ATTEMPTING TO GET OUT OF BED UNASSISTED. PATIENT TOOK OFF TELEMETRY LEADS AND GOWN AND WOULD NOT ALLOW STAFF TO PUT THEM BACK ON. NOT EASILY REDIRECTED. SITTING UP DRINKING COFFEE AND TALKING ON THE PHONE. SAFETY MEASURES IN PLACE. CALL LIGHT WITHIN REACH.
--- NOTE | 2023-01-16 07:00 | NUR ---
RECEIVED REPORT FROM PM RN. ALL SAFETY MEASURES IN PLACE, VSS. PT IS RESTING IN RECLINER, NO NEEDS AT THIS TIME. PT IS VERY CONFUSED. REORIENTED FREQUENTLY.
[2023-01-16 11:05] VITALS: BP 133/83
[2023-01-16 15:12] VITALS: BP 126/78
--- NOTE | 2023-01-16 16:00 | NUR ---
PT GIVEN XANAX FOR ANXIETY PER PHYSICIAN ORDER. PT STATES HE IS GOING TO GET UP AND WALK NO MATTER WHAT STAFF SAYS. RN ASSISTED PT TO HIS FEET. PT WAS TOO WEAK TO TAKE ANY STEPS, BUT WAS ABLE TO STAND FOR 30 SECONDS.
[2023-01-16 19:07] VITALS: BP 108/65
--- NOTE | 2023-01-16 20:42 | NUR ---
PT IS REFUSING TELE MONITOR. PT EDUCATED ON THE PORPUSE ON THE TELE MONITOR. PT CONTINUE TO REFUSE. DR UGALDE NOTIFIED AND ORDER TO DC TELE.
--- NOTE | 2023-01-16 21:00 | NUR ---
PT IN RECLINER WATCHING TV DENIES OAIN OR DICOMFORT. SHIFT ASSESSMENT COMPLETED. NO NEEDS OR CONCERN VOICED AT THIS TIME. CALL LIGHT INREACH.
--- NOTE | 2023-01-17 00:40 | NUR ---
PT IN BED AWAKE. NO S/S OF DISTRESS NOTED. BREATHING IS EVEN AND UNLABORED. PT REQUEST A SLEEPING PILL STATES THAT HE CAN SLEEP. PT MEDICATED ORDER. CALL LIGHT IN REACH AND BED IN LOWEST POSITION.
--- NOTE | 2023-01-17 04:23 | NUR ---
PT IN BED RESTING IN BED WITH EYES CLOSED BREATHING EVEN AND UNLABORED. NO S/S OF DISTRESS NOTED. CALL LIGHT IN REACH AND BED IN LOWEST POSITION. BED ALARM ON. -
[2023-01-17 06:59] VITALS: BP 140/91
--- NOTE | 2023-01-17 10:37 | NUR ---
REPORT CALLED TO [facility]. [phone]. FACILITY IS REQUESTING A PRESCRIPTION FOR XANAX SO PT CAN STAY ON HIS SCHEDULE. ALL PAPERWORK FILLED OUT AND PT IS JUST AWAITING TRANSPORTATION.
[2023-01-17] MEDS ORDERED: ALPRAZOLAM0.5 M2 PO (11:33)
== END 2023-01-17 11:42 | DRG 178 ==
LOC: ED 17:41 → ED-I 21:17 → ED 21:57 → MS2 21:58
PROVIDERS: Family Medicine; Internal Medicine; Nurse Practitioner Family; ADMIT Internal Medicine; ATTEND Internal Medicine
DX: U07.1 COVID-19 (principal); F02.811 Dementia in other diseases classified elsewhere, unspecified severity, with agitation; R53.1 Weakness; I95.9 Hypotension, unspecified; S70.01XA Contusion of right hip, initial encounter; I50.9 Heart failure, unspecified; F32.A Depression, unspecified; I25.10 Atherosclerotic heart disease of native coronary artery without angina pectoris; I49.5 Sick sinus syndrome; I48.0 Paroxysmal atrial fibrillation; G20 Parkinson's disease; D64.9 Anemia, unspecified; N18.9 Chronic kidney disease, unspecified; R35.1 Nocturia; N40.1 Benign prostatic hyperplasia with lower urinary tract symptoms; G40.909 Epilepsy, unspecified, not intractable, without status epilepticus; W19.XXXA Unspecified fall, initial encounter; Z91.81 History of falling; Z95.0 Presence of cardiac pacemaker; Z95.3 Presence of xenogenic heart valve; Z91.51 Personal history of suicidal behavior; Z95.818 Presence of other cardiac implants and grafts; Z95.1 Presence of aortocoronary bypass graft; K21.9 Gastro-esophageal reflux disease without esophagitis; F41.9 Anxiety disorder, unspecified

== ENCOUNTER 2023-03-19 09:51 | Emergency (ER) | payer MEDICARE, OTHER ==
[2023-03-19] VITALS (16 sets, daily range): BP systolic 135–174; BP diastolic 85–124
[~2023-03-19] VITALS: Ht 182.9 cm; Wt 89.2 kg
[~2023-03-19 09:51] MED LIST changes: +ALPRAZOLAM0.5 M2 PO
[2023-03-19] MEDS ORDERED: RYTARY 23.75-951 CAP PO (10:12)
[2023-03-19 10:35] LABS: EOS% 1.7 % (0-8); HEMATOCRIT 41.4 % (39.0-50.0); HEMOGLOBIN 13.1 g/dl (14.0-18.0); IMMATURE GRANULOCYTES 0.3 % (0.0-5.0); LYMPH% 26.9 % (15-41); MEAN CELL VOLUME 94.3 fL CALC (80.0-100.0); MEAN CORPUSCULAR HGB 29.8 pG CALC (26.0-32.0); MEAN CORPUSCULAR HGB CONC 31.6 g/dL CAL (32.0-36.0); MONO% 7.3 % (2-13); NEUT# 3.59 thou/uL (1.82-7.42); NEUT% 62.8 % (42-76); RED BLOOD COUNT 4.39 mill/uL (4.70-6.10); RED CELL DISTRI WIDTH 14.7 % (11.5-15.5)
[2023-03-19 10:54] LABS: D-DIMER 2.75 mg/L (0.19-0.60)
[2023-03-19 10:59] LABS: ACT PARTIAL THROMBO TIME 24.5 SECONDS (20.0-32.5); INTERNATIONAL NORMALIZED RATIO 1.1 RATIO (0.7-1.3); PROTHROMBIN TIME 10.9 SECONDS (9.0-12.5)
[2023-03-19 11:01] LABS: ALBUMIN 3.6 g/dL (3.2-5.0); ALKALINE PHOSPHATASE 103 u/l (38-126); BILIRUBIN, TOTAL 0.7 mg/dL (0.2-1.3); BUN 23 mg/dL (8-23); BUN/CREATININE RATIO 19 (12-20 (CALC)); CHLORIDE 104 mmol/l (95-108); CREATININE 1.2 mg/dL (0.7-1.3); GFR FOR AFR.AMER. > 60 ML/MIN (>=60 (CALC)); GFR OTHER RACES 59 ML/MIN (>=60 (CALC)); POTASSIUM 4.3 mmol/l (3.5-5.1); SGOT/AST 24 u/l (19-48); SODIUM 139 mmol/l (137-146); TOTAL PROTEIN 6.7 g/dL (6.3-8.2)
[2023-03-19 11:10] LABS: ANION GAP 7 (6-22 (CALC)); CARBON DIOXIDE 32 mmol/l (22-30)
[2023-03-19 12:51] LABS: URINE BILIRUBIN - DIPSTICK Negative (NEGATIVE); URINE BLOOD DIPSTICK Negative (NEGATIVE); URINE COLOR Yellow; URINE GLUCOSE - DIPSTICK Negative (NEGATIVE); URINE KETONE Negative (NEGATIVE); URINE LEUK ESTERASE Negative (NEGATIVE); URINE NITRITE - DIPSTICK Negative (Negative); URINE PH 5.5 (4.5-8.0); URINE PROTEIN - DIPSTICK Negative (NEG-TRACE); URINE SPECIFIC GRAVITY 1.015; URINE UROBILINOGEN - DIPSTICK 0.2 E.U./dL (0.2)
== END 2023-03-19 16:30 | disposition home or self-care (01) ==
LOC: ED 09:51 → ED-I 10:17 → ED 16:30
PROVIDERS: Family Medicine
DX: R07.9 Chest pain, unspecified (principal); I11.0 Hypertensive heart disease with heart failure; I50.9 Heart failure, unspecified; I25.10 Atherosclerotic heart disease of native coronary artery without angina pectoris; G20 Parkinson's disease; Z95.3 Presence of xenogenic heart valve; Z95.0 Presence of cardiac pacemaker; Z95.818 Presence of other cardiac implants and grafts
CPT/HCPCS: Q9967

== ENCOUNTER 2023-05-11 16:08 | Observation (INO) | payer MEDICARE, OTHER ==
[~2023-05-11 16:08] MED LIST changes: +RYTARY 23.75-951 CAP PO
[2023-05-11 16:27] VITALS: BP 164/108
[2023-05-11 17:08] LABS: BASO% 0.4 % (0-3); EOS% 1.4 % (0-8); HEMATOCRIT 45.1 % (39.0-50.0); HEMOGLOBIN 14.3 g/dl (14.0-18.0); IMMATURE GRANULOCYTES 0.3 % (0.0-5.0); LYMPH% 21.7 % (15-41); MEAN CELL VOLUME 93.8 fL CALC (80.0-100.0); MEAN CORPUSCULAR HGB 29.7 pG CALC (26.0-32.0); MEAN CORPUSCULAR HGB CONC 31.7 g/dL CAL (32.0-36.0); NEUT# 5.02 thou/uL (1.82-7.42); NEUT% 68.2 % (42-76); RED BLOOD COUNT 4.81 mill/uL (4.70-6.10); RED CELL DISTRI WIDTH 14.1 % (11.5-15.5)
[2023-05-11 17:37] LABS: ALBUMIN 4.2 g/dL (3.2-5.0); ALKALINE PHOSPHATASE 109 u/l (38-126); ANION GAP 12 (6-22 (CALC)); BILIRUBIN, TOTAL 0.9 mg/dL (0.2-1.3); BUN 21 mg/dL (8-23); BUN/CREATININE RATIO 16 (12-20 (CALC)); CARBON DIOXIDE 28 mmol/l (22-30); CHLORIDE 102 mmol/l (95-108); CREATININE 1.3 mg/dL (0.7-1.3); GFR FOR AFR.AMER. > 60 ML/MIN (>=60 (CALC)); GFR OTHER RACES 54 ML/MIN (>=60 (CALC)); POTASSIUM 4.5 mmol/l (3.5-5.1); SGOT/AST 26 u/l (19-48); SODIUM 137 mmol/l (137-146); TOTAL PROTEIN 7.9 g/dL (6.3-8.2)
[2023-05-11 18:56] VITALS: BP 146/96
[2023-05-12 00:26] VITALS: BP 146/95
[2023-05-12 04:08] VITALS: BP 155/108
[2023-05-12 04:37] VITALS: BP 150/100
[2023-05-12 05:25] LABS: HEMATOCRIT 45.3 % (39.0-50.0); HEMOGLOBIN 14.5 g/dl (14.0-18.0); MEAN CELL VOLUME 94.2 fL CALC (80.0-100.0); MEAN CORPUSCULAR HGB 30.1 pG CALC (26.0-32.0); RED BLOOD COUNT 4.81 mill/uL (4.70-6.10)
[2023-05-12 05:40] LABS: ALBUMIN 3.9 g/dL (3.2-5.0); ALKALINE PHOSPHATASE 106 u/l (38-126); ANION GAP 13 (6-22 (CALC)); BILIRUBIN, TOTAL 1.1 mg/dL (0.2-1.3); BUN 18 mg/dL (8-23); BUN/CREATININE RATIO 17 (12-20 (CALC)); CARBON DIOXIDE 26 mmol/l (22-30); CHLORIDE 103 mmol/l (95-108); CREATININE 1.1 mg/dL (0.7-1.3); GFR FOR AFR.AMER. > 60 ML/MIN (>=60 (CALC)); GFR OTHER RACES > 60 ML/MIN (>=60 (CALC)); MAGNESIUM 1.9 mg/dL (1.6-2.3); POTASSIUM 4.4 mmol/l (3.5-5.1); SGOT/AST 22 u/l (19-48); SODIUM 137 mmol/l (137-146); TOTAL PROTEIN 6.9 g/dL (6.3-8.2)
[2023-05-12 06:14] LABS: ACT PARTIAL THROMBO TIME 25.4 SECONDS (20.0-32.5); INTERNATIONAL NORMALIZED RATIO 1.1 RATIO (0.7-1.3); PROTHROMBIN TIME 10.8 SECONDS (9.0-12.5)
[2023-05-12 06:22] VITALS: BP 147/90
[2023-05-12 10:41] VITALS: BP 125/76
== END 2023-05-12 15:15 | disposition home health service (06) ==
LOC: MS2 16:08
PROVIDERS: ADMIT Student in an Organized Health Care Education/Training Program; ATTEND Student in an Organized Health Care Education/Training Program
PROC: 0T9B70Z Drainage of Bladder with Drainage Device, Via Natural or Artificial Opening (ICD-10-PCS; principal; 2023-05-11)
DX: R31.0 Gross hematuria (principal); N40.1 Benign prostatic hyperplasia with lower urinary tract symptoms; N39.41 Urge incontinence; R33.8 Other retention of urine; R35.0 Frequency of micturition; G20.A1 Parkinson's disease without dyskinesia, without mention of fluctuations; F02.811 Dementia in other diseases classified elsewhere, unspecified severity, with agitation; N40.0 Benign prostatic hyperplasia without lower urinary tract symptoms; I49.5 Sick sinus syndrome; I25.10 Atherosclerotic heart disease of native coronary artery without angina pectoris; I48.0 Paroxysmal atrial fibrillation; N18.9 Chronic kidney disease, unspecified; K21.9 Gastro-esophageal reflux disease without esophagitis; F41.9 Anxiety disorder, unspecified; F32.A Depression, unspecified; Z95.3 Presence of xenogenic heart valve; Z95.0 Presence of cardiac pacemaker; Z95.818 Presence of other cardiac implants and grafts; G40.909 Epilepsy, unspecified, not intractable, without status epilepticus; N32.81 Overactive bladder

== ENCOUNTER 2023-06-14 12:30 | Emergency (ER) | payer MEDICARE, OTHER ==
[2023-06-14] VITALS (11 sets, daily range): BP systolic 153–168; BP diastolic 95–109
[~2023-06-14] VITALS: Ht 182.9 cm; Wt 90.0 kg
[2023-06-14] MEDS ORDERED: TOPROL XL25 M1 PO (12:56)
[2023-06-14] MEDS ORDERED: SEROQUEL25 MG PO (12:58)
[2023-06-14 13:02] LABS: BASO% 0.4 % (0-3); EOS% 2.4 % (0-8); HEMATOCRIT 42.2 % (39.0-50.0); HEMOGLOBIN 13.8 g/dl (14.0-18.0); IMMATURE GRANULOCYTES 0.7 % (0.0-5.0); LYMPH% 28.8 % (15-41); MEAN CELL VOLUME 93.8 fL CALC (80.0-100.0); MEAN CORPUSCULAR HGB 30.7 pG CALC (26.0-32.0); MEAN CORPUSCULAR HGB CONC 32.7 g/dL CAL (32.0-36.0); NEUT# 3.31 thou/uL (1.82-7.42); NEUT% 59.7 % (42-76); RED BLOOD COUNT 4.5 mill/uL (4.70-6.10); RED CELL DISTRI WIDTH 14.4 % (11.5-15.5)
[2023-06-14 13:19] LABS: ALBUMIN 3.8 g/dL (3.2-5.0); ALKALINE PHOSPHATASE 78 u/l (38-126); ANION GAP 14 (6-22 (CALC)); BILIRUBIN, TOTAL 0.9 mg/dL (0.2-1.3); BUN 25 mg/dL (8-23); BUN/CREATININE RATIO 25 (12-20 (CALC)); CARBON DIOXIDE 24 mmol/l (22-30); CHLORIDE 104 mmol/l (95-108); GFR FOR AFR.AMER. > 60 ML/MIN (>=60 (CALC)); GFR OTHER RACES > 60 ML/MIN (>=60 (CALC)); POTASSIUM 4.9 mmol/l (3.5-5.1); SGOT/AST 44 u/l (19-48); SODIUM 137 mmol/l (137-146); TOTAL PROTEIN 7.1 g/dL (6.3-8.2)
== END 2023-06-14 16:57 | disposition left against medical advice (07) ==
LOC: ED 12:30
PROVIDERS: Family Medicine
DX: R07.9 Chest pain, unspecified (principal); R51.9 Headache, unspecified; I11.0 Hypertensive heart disease with heart failure; I50.9 Heart failure, unspecified; G20.A1 Parkinson's disease without dyskinesia, without mention of fluctuations; Z95.0 Presence of cardiac pacemaker; Z95.818 Presence of other cardiac implants and grafts; Z53.29 Procedure and treatment not carried out because of patient's decision for other reasons; Z20.822 Contact with and (suspected) exposure to COVID-19